=== PATIENT | female | born 1945 | race Caucasian/White ===

== ENCOUNTER 2023-10-31 09:09 | Inpatient (IN) | payer OTHER ==
[2023-10-31 22:20] VITALS: BMI 34.0
[2023-10-31] MEDS ORDERED: PSEUDOEPHEDRINE PO PRN (22:35)
[2023-10-31] MEDS ORDERED: BROMPHENIRAMINE PO PRN (22:35)
[2023-10-31] MEDS ORDERED: DEXTROMETHORPHAN PO PRN (22:35)
[2023-10-31] MEDS ORDERED: ACETAMINOPHEN 325 MG TABLET PO PRN (22:58)
[2023-10-31] MEDS ORDERED: ONDANSETRON 4 MG (ODT) TAB PO PRN (23:00)
[2023-10-31] MEDS ORDERED: D50W 25 GM/50 ML SYRINGE IV PRN (23:04)
[2023-10-31] MEDS ORDERED: GLUCAGON 1 MG/VIAL IM PRN (23:04)
[2023-10-31] MEDS ORDERED: D10W 125 ML IV PRN (23:10)
[2023-10-31] MEDS: TRAZODONE 150 MG TAB PO PRN (23:58)
[2023-11-01] MEDS ORDERED: DOCUSATE NA/SENNA CONC 1 TAB PO PRN (01:36)
[2023-11-01] MEDS ORDERED: MELATONIN 3 MG TABLET PO PRN (01:36)
[2023-11-01] MEDS ORDERED: NA CHLORIDE 0.9% 250 ML ONE (01:38)
[2023-11-01 03:56] LABS: Absolute Lymphocytes (CBC) 5.5 K/uL (0.7-4.9); Hematocrit 28.4 % (36.0-45.0); Lymphocytes % 38.1 % (15.3-44.8); MCV 88.7 fL (80-100); MPV 8.2 fL (7.6-11.3); Platelets 268 thou/uL (152-406); RBC Red Blood Cell Count 3.21 M/uL (3.86-4.86)
[2023-11-01 04:06] LABS: Potassium 3.2 mEq/L (3.5-5.1); Prealbumin 6.6 mg/dL (20-40)
[2023-11-01] MEDS: PANTOPRAZOLE 40MG TABLET PO SCH (05:28)
[2023-11-01] MEDS: THYROID 30 MG TAB PO SCH (05:28)
[2023-11-01] MEDS: INSULIN REGULAR (HUMAN) 100 UNIT/ML SQ SCH ×4 (07:30→21:00)
[2023-11-01] MEDS: CINNAMON 1000 MG PO SCH (08:00)
[2023-11-01] MEDS ORDERED: CEFTRIAXONE 2,000 MG in NA CHLORIDE 0.9% 100 ML IV SCH (08:00)
[2023-11-01] MEDS: FARXIGA 10 MG PO SCH (08:00)
[2023-11-01] MEDS: TRAJENTA 5 MG PO SCH (08:00)
[2023-11-01] MEDS: COMPLEX PO SCH (08:00)
[2023-11-01] MEDS: DOCUSATE NA 100 MG CAP PO SCH (08:00)
[2023-11-01] MEDS: NYSTATIN PWDR 100000 UNIT/GM TOP SCH ×2 (09:16→21:06)
[2023-11-01] MEDS: CLOPIDOGREL 75 MG TABLET PO SCH (09:17)
[2023-11-01] MEDS: MEMANTINE HCL 10 MG TABLET PO SCH ×2 (09:17→21:06)
[2023-11-01] MEDS: PARoxetine HCL 10 MG TAB PO SCH (09:17)
[2023-11-01] MEDS: GABAPENTIN 300 MG CAP PO SCH ×3 (09:18→21:01)
[2023-11-01] MEDS: APIXABAN 5 MG TABLET PO SCH (09:18)
[2023-11-01] MEDS: CYANOCOBALAMIN 1,000 MCG TAB PO SCH (09:18)
[2023-11-01] MEDS: CARBIDOPA/LEVODOPA 25/100 TAB PO SCH ×2 (09:19→21:00)
[2023-11-01] MEDS: HYDRALAZINE HCL 25 MG TABLET PO SCH ×2 (09:19→21:01)
[2023-11-01] MEDS: carvediloL 6.25 MG TAB PO SCH ×2 (09:19→21:01)
[2023-11-01] MEDS: FUROSEMIDE 40 MG TABLET PO SCH (09:20)
[2023-11-01] MEDS: AMLODIPINE 5 MG TAB PO SCH (09:20)
[2023-11-01] MEDS: VITAMIN D 5,000 UNIT CAP PO SCH (09:20)
[2023-11-01] MEDS: FERROUS SULFATE 325 MG TAB PO SCH ×2 (09:20→16:36)
[2023-11-01] MEDS: SODIUM CHLORIDE 0.9% 10ML INJ IV SCH ×2 (09:21→21:12)
[2023-11-01] MEDS: ASCORBIC ACID 500 MG TABLET PO SCH (09:21)
[2023-11-01] MEDS: CEFTRIAXONE 2,000 MG in NA CHLORIDE 0.9% 100 ML IV SCH (09:27)
--- NOTE | 2023-11-01 11:23 | RAD REPORT ---
EXAM DESCRIPTION: RAD - Chest Single View - 11/01/2023 6:35 am CLINICAL HISTORY: Picc line placement verification COMPARISON: Chest 1 View AP 10/27/2023 CT chest 07/13/2023 TECHNIQUE: Chest 1 View AP FINDINGS: Trachea midline. Heart size and pulmonary vessels within normal limits. Poor visualization of left lower lung field due to relative increased density. No significant pleural effusion or pneumothorax. No acute fracture. Cardiac pacemaker with pulse generator overlying left chest wall and lead tips overlying right atrium and right ventricle. Sternotomy and mediastinal surgical clips suggest CABG. Left arm PICC tip overlies midlevel medial soft tissues of left upper arm. IMPRESSION: 1. Dense left lower lung field appearance. This may be artifactual due to lack of deep inspiration, small pleural effusion, atelectasis, or cons olidation. Follow up chest radiograph 2 views (PA and lateral) in upright position with full inspiration in radi ology department may be helpful. 2. Cardiac pacemaker and CABG reidentified. 3. Left arm PICC tip overlies midlevel medial soft tissues of left upper arm. Electronically signed by: Lv Alfred MD 11/01/2023 07:16 AM SOLE LEVELER MACHINE Due to temporary technical issues with the PACS/Fluency reporting system, reports are being signed by the in house radiologist without review as a courtesy to ensure prompt reporting. The interpreting r adiologist is fully responsible for the content of the report.
[2023-11-01] MEDS: LIDOCAINE 4% PATCH TOP SCH (15:26)
[2023-11-01] MEDS ORDERED: POTASSIUM CL SA 10 MEQ TAB PO ONE (19:35)
[2023-11-01] MEDS: INSULIN GLARGINE 100 UNIT/ML SQ SCH (21:00)
[2023-11-01] MEDS ORDERED: ATORVASTATIN 80 MG TAB PO SCH (21:00)
[2023-11-01] MEDS: DONEPEZIL HCL 5 MG TAB PO SCH (21:01)
[2023-11-01] MEDS: ATORVASTATIN 40 MG TAB PO SCH (21:01)
--- NOTE | 2023-11-02 00:04 | HP ---
Date of Admission: 10/31/2023 [id number] Ad[facility] History and Physical Time Of Service: 12:30 p.m. Chief Complaint: "I became very weak and need some help." History Of Present Illness: Ms. Lai is a 78-year-old patient with Alzheimer disease and Parkinso n disease, who developed left-sided chest pain at outside hospital with left arm radiation and shortn ess of breath. The patient had fallen 2 days prior to her presenting to hospital. Her daughter was worried that she had a new myocardial infarction as she had a 4-vessel cardiac bypass previously. Billy katz was found to have elevated white blood cell of 24,000, troponins of 17 and diagnosed with ischemic heart disease. However, there was no ST-segment myocardial infarction identified. Her blood sugars were elevated to 835 and the patient admitted to having a high-carb dinner and taking a Dr. Leblanc dr ink. She has also stage 3 kidney disease and found to be dehydrated. Her furosemide was held. She received gentle IV hydration. Beta-blockers for congestive heart failure continued, and she was corrine silver with insulin sliding scale and diet-controlled diabetes mellitus which has been uncontrolled at h emoglobin A1c of 9.5. Also was on Sinemet for Parkinson disease, Namenda for Alzheimer disease, traz odone for insomnia. She is continued on Synthroid for hypothyroidism along with Eliquis, Plavix, and statin for stroke risk reduction along with myocardial infarction risk reduction. In her evaluation , found to have a fever with the leukocytosis and the urinalysis showed pyuria. She received Rocephi n and vancomycin, and cultures grew Streptococcus pyogenes group A. Antibiotics were adjusted to cli ndamycin. She is set to continue the clindamycin for 14 days beginning on 10/31/2023. The patient w as cleared medically to begin inpatient rehabilitation, as she has been significantly debilitated. P rior to her recent bout of infection, she was independent ambulating without an assistive device desp ite being advised to use a walker. She typically just sits in a recliner and only ambulates back and forth to the restroom. She was able to dress herself and do ordinary activities with setup assistan ce. However, at this point, she requires maximum assistance and 2 people for bed mobilization, moder ate assistance with 2-person assist for her mzh-je-uauor transfers and she is not yet able to ambulat e any meaningful distances. She is now functioning well below her baseline. As a result, she requir es aggressive physical, occupational, and speech therapy and daily physician evaluation and managemen t of her comorbid conditions. This may help her to return home and reduce or minimize the risk of re hospitalization. Past Medical History: Congestive heart failure, coronary artery disease, Alzheimer disease, diabetes mellitus type 2, dyslipidemia, hypertension, hypothyroidism, prior myocardial infarction with 4-vess el bypass surgery in addition to surgical history of appendectomy, cardiac stents x3, pacemaker place ment, tonsillectomy, and right foot surgery. Allergies: NO KNOWN DRUG ALLERGIES. Recent Imaging: Chest x-ray on 10/25/2023 showed no acute cardiothoracic findings. Medications: Tylenol 650 mg every 6 hours as needed, Norvasc 5 mg daily, Eliquis 5 mg twice daily, a scorbic acid 500 mg daily, Lipitor 40 mg at bedtime, Sinemet 25/100 two tablets twice daily, Coreg 6. 25 mg twice daily. She received the Rocephin also 2 g daily, vitamin D 5000 units daily, Plavix 75 m g daily, vitamin B12 1000 mcg daily, Colace 100 mg daily, Aricept 10 mg at bedtime, ferrous sulfate 3 25 mg twice daily, Lasix 40 mg daily, gabapentin 300 mg 3 times daily, Semglee insulin 70 units at be dtime, Apresoline 50 mg twice daily, melatonin 3 at bedtime, lidocaine patch apply topically daily, m emantine 10 mg twice daily, nystatin powder apply topically twice daily as needed, Zofran 4 mg every 6 hours as needed, Protonix 40 mg daily, Paxil 30 mg daily, Senokot-S 2 at bedtime, [place] Thyroid 12 0 daily, trazodone 150 mg at bedtime. Family History: Noncontributory. Social History: The patient lives at home with family. No alcohol, tobacco, or IV drug use. Review of Systems: As previously noted, she had chest pain. Currently, no chest pain. She denies any shortness of lei th aside from previously. No fevers, chills. No significant myalgias. There are mild arthralgias. No rash. No active psychiatric issues. No active genitourinary or gastrointestinal issues. No oth er positives on a 10-point systems review. Current Level Of Functioning: Eating, setup assistance. Oral hygiene, setup assistance. Toileting is dependent. Showering, dependent. Maximum assist for upper body dressing. Dependent for lower aundrea dy dressing. Dependent for donning of footwear. For rolling right to left and left to right, sit-to -stand, transfer from bed to chair to toilet, all dependent, but not yet ambulated. Rehabilitation And Medical Assessment And Plan: Ms. Lai is a 78-year-old patient admitted to the rehabilitation unit with impairment category 14 cardiac, impairment group code of 09, cardiac and et iologic diagnosis is diastolic congestive heart failure. Comorbidities include coronary artery disea se, decreased physical functioning, diabetes mellitus, hypertension, hyponatremia, hypothyroidism, le ukocytosis, Parkinson disease, fibrillation, stage 3 kidney failure. Plan: 1.She will have physical, occupational, and speech therapy 3-1/2 hours, 5 of 7 days. 2.She has multiple comorbid conditions that have been listed and she will continue Norvasc 5 mg jenelle y along with Coreg 6.25 mg twice daily and Lasix 40 mg daily for hypertension and fluid management. Also, currently she is on Eliquis 5 mg just actually 1 daily, Plavix 75 mg daily for her stroke risk and DVT risk reduction. She is receiving Rocephin 2 g IV daily that we will continue. Also, Aricept 10 mg at bedtime along with Namenda 10 mg twice daily for Alzheimer disease, trazodone for insomnia, [place] Thyroid for hypothyroidism, Paxil for depression, Protonix for GE reflux, gabapentin for neur opathic pain, carbidopa-levodopa 25/100 two twice daily for Parkinson disease. Impact Of Comorbidities: Currently, Ms. Lai as noted has multiple comorbid conditions including the need for IV antibiotics to continue. Her therapy schedule will be worked on her antibiotics. Sh gianna will be evaluated for potential GI related bacterial overgrowth, given IV antibiotics where she may develop C diff and she will be evaluated for that. In addition, repeat imaging including chest x-ra y may be done and KUB as appropriate. Urinalysis done on the floor as well. Furthermore, she has be en significantly debilitated prior to coming to the hospital and will require precautions for her saul lity just to transfer, as she has a very high fall risk. Gait belt and rolling walker at all times. Rehab Specific Plan: Ms. Lai will have 3-1/2 hours, 5 of 7 days of physical, occupational, and s peech therapy to improve her ability to transfer from bed to chair to toilet, to ambulate now about a t least 50 feet with minimum assistance and mobilize the wheelchair 250 feet with modified independen ce, up and down 5 steps with min assist, and perform cognitive functioning with supervision and also to be able to manage all her medications and make safe decisions in terms of reducing risk of falling when she goes home. Ms. Lai has a good understanding of the process of admission to inpatient rehabilitation facility and will understand that she may benefit well from physical, occupational, and speech therapy. If n eed be, additional service from the Infectious Disease, Orthopedic Service, Hospitalist Service, Sheeba l Service may be consulted. Given her complex medical condition and risk of further complications, r ehabilitation cannot be safely or effectively perform at the lower level of facility such as [facility]. Barriers To Discharge: Currently, the IV antibiotics need to be going at least 14 days and will pote ntially need to continue beyond the time that she is admitted to the inpatient rehabilitation; and th erefore, home health with ongoing [facility] may be required. Again, very high fall risk, as sh e is significantly debilitated and will be placed on fall precautions throughout and if she is impuls miguel ángel, may use a bed alarm and chair alarm. Length Of Stay: About 12 days. Disposition: Home with family. Prognosis: Fair. Rehab Specific Goals: 1.Again become independent with upper body and lower body dressing and transferring from bed to jimi r to toilet, be able to shower as close to independence as possible, donning and doffing footwear als o independent. 2.Ambulate 250 feet with supervision. 3.Propel a wheelchair 250 feet with independence. 4.Go up and down 5 steps with bilateral handrails with min assist. 5.Perform cognitive functioning independently. 6.The above goals were reviewed with Ms. Lai and she is in agreement. By signing this document, I acknowledge I personally performed a full physical examination on Ms. Tameka benjamin no later than 24 hours after her admission to the inpatient rehabilitation facility and determin ed that she is able to tolerate the above course of treatment at an intensive level for a reasonable period of time. A detailed individualized plan of care for her will be completed by hospital day 4 b ased on the preadmission screen, history and physical, and therapy evaluations. NORMA Voice ID: [id number]
[2023-11-02] MEDS: PANTOPRAZOLE 40MG TABLET PO SCH (05:42)
[2023-11-02] MEDS: THYROID 30 MG TAB PO SCH (05:42)
[2023-11-02] MEDS: INSULIN REGULAR (HUMAN) 100 UNIT/ML SQ SCH ×4 (07:30→20:14)
[2023-11-02] MEDS: CEFTRIAXONE 2,000 MG in NA CHLORIDE 0.9% 100 ML IV SCH (07:46)
[2023-11-02] MEDS: SODIUM CHLORIDE 0.9% 10ML INJ IV SCH ×2 (07:48→20:29)
[2023-11-02] MEDS: TRAJENTA 5 MG PO SCH (08:00)
[2023-11-02] MEDS: GABAPENTIN 300 MG CAP PO SCH ×3 (09:55→20:06)
[2023-11-02] MEDS: VITAMIN D 5,000 UNIT CAP PO SCH (09:55)
[2023-11-02] MEDS: POTASSIUM CL SA 10 MEQ TAB PO SCH ×2 (09:55→16:42)
[2023-11-02] MEDS: DOCUSATE NA 100 MG CAP PO SCH (09:55)
[2023-11-02] MEDS: FARXIGA 10 MG PO SCH (09:55)
[2023-11-02] MEDS: CYANOCOBALAMIN 1,000 MCG TAB PO SCH (09:55)
[2023-11-02] MEDS: CARBIDOPA/LEVODOPA 25/100 TAB PO SCH ×2 (09:56→20:06)
[2023-11-02] MEDS: PARoxetine HCL 10 MG TAB PO SCH (09:56)
[2023-11-02] MEDS: APIXABAN 5 MG TABLET PO SCH (09:57)
[2023-11-02] MEDS: FERROUS SULFATE 325 MG TAB PO SCH ×2 (09:57→16:42)
[2023-11-02] MEDS: ASCORBIC ACID 500 MG TABLET PO SCH (09:57)
[2023-11-02] MEDS: MEMANTINE HCL 10 MG TABLET PO SCH ×2 (09:57→20:06)
[2023-11-02] MEDS: CLOPIDOGREL 75 MG TABLET PO SCH (09:57)
[2023-11-02] MEDS: COMPLEX PO SCH (09:58)
[2023-11-02] MEDS: FUROSEMIDE 40 MG TABLET PO SCH (09:58)
[2023-11-02] MEDS: CINNAMON 1000 MG PO SCH (09:58)
[2023-11-02] MEDS: LIDOCAINE 4% PATCH TOP SCH (09:58)
[2023-11-02] MEDS: carvediloL 6.25 MG TAB PO SCH ×2 (09:58→20:05)
[2023-11-02] MEDS: AMLODIPINE 5 MG TAB PO SCH (09:59)
[2023-11-02] MEDS: HYDRALAZINE HCL 25 MG TABLET PO SCH ×2 (09:59→20:06)
[2023-11-02] MEDS: NYSTATIN PWDR 100000 UNIT/GM TOP SCH ×2 (10:12→20:08)
--- NOTE | 2023-11-02 13:58 | P.RH.PN ---
Estimated Length of Stay: 12 Expected Discharge Date: 11/10/23 Discharge Disposition Plan: Home Family Support: Yes Correction Goal: Mobility, Transfers, Self Care Vital Signs: Last Vital Signs Temp 97.6 F 11/02/23 08:00 Pulse 64 11/02/23 09:59 Resp 12 11/02/23 08:00 BP 167/67 H 11/02/23 09:59 Pulse Ox 97 11/02/23 08:00 Laboratory: Laboratory Last Values WBC 14.40 thou/uL (4.3-10.9) H 11/01/23 03:24 RBC 3.21 M/uL (3.86-4.86) L 11/01/23 03:24 Hgb 9.8 g/dL (12.0-15.0) L 11/01/23 03:24 Hct 28.4 % (36.0-45.0) L 11/01/23 03:24 MCV 88.7 fL (80-100) 11/01/23 03:24 MCH 30.6 pg (27.0-35.0) 11/01/23 03:24 MCHC 34.5 g/dL (32.0-36.0) 11/01/23 03:24 RDW 13.5 % (12.1-15.2) 11/01/23 03:24 Plt Count 268 thou/uL (152-406) 11/01/23 03:24 MPV 8.2 fL (7.6-11.3) 11/01/23 03:24 Neutrophils % 54.6 % (41.7-73.7) 11/01/23 03:24 Lymphocytes % 38.1 % (15.3-44.8) 11/01/23 03:24 Monocytes % 5.4 % (3.3-12.3) 11/01/23 03:24 Eosinophils % 1.3 % (0-4.4) 11/01/23 03:24 Basophils % 0.6 % (0-1.3) 11/01/23 03:24 Absolute Neutrophils 7.9 K/uL (1.8-8.0) 11/01/23 03:24 Absolute Lymphocytes 5.5 K/uL (0.7-4.9) H 11/01/23 03:24 Absolute Monocytes 0.8 K/uL (0.1-1.3) 11/01/23 03:24 Absolute Eosinophils 0.2 K/uL (0-0.5) 11/01/23 03:24 Absolute Basophils 0.1 K/uL (0-0.5) 11/01/23 03:24 Sodium 137 mEq/L (136-145) 11/01/23 03:24 Potassium 3.2 mEq/L (3.5-5.1) L 11/01/23 03:24 Chloride 105 mEq/L (98-107) 11/01/23 03:24 Carbon Dioxide 26 mEq/L (21-32) 11/01/23 03:24 Anion Gap 9.2 mEq/L (5.0-15.0) 11/01/23 03:24 BUN 11 mg/dL (7-18) 11/01/23 03:24 Creatinine 0.99 mg/dL (0.55-1.02) 11/01/23 03:24 Est GFR (CKD-EPI) 59 ml/min (=/>90) L 11/01/23 03:24 Glucose 170 mg/dL (74-106) H 11/01/23 03:24 POC Glucose 129 mg/dL (65-120) H 11/02/23 11:02 Calcium 8.0 mg/dL (8.5-10.1) L 11/01/23 03:24 Magnesium 2.0 mg/dL (1.6-2.4) 11/01/23 03:24 NT-Pro-B Natriuret Pep 3848 pg/mL (<450) H 11/01/23 03:24 Albumin 2.0 g/dL (3.4-5.0) L 11/01/23 03:24 Prealbumin 6.6 mg/dL (20-40) L 11/01/23 03:24 SARS-CoV-2 Rap RNA(RT-PCR) Negative (NEGATIVE) 10/31/23 22:08 Weight: 211 lb 3.2 oz Wound Present: Yes Closed Surgical Incision Present: No Negative Pressure Wound Therapy Present: No Physician Update: Severe malnutrition, prealbumin 6.6, Left shoulder pain is 7/10. On ceftriaxone 2000 mg daily for 2 weeks. BIMS 12, SLUMS 15. Poor atten tion, orientation and memory. Min assist for bed mobility, 50' RW, WC 85'. Transfer to toilet with supervision. Summary: Patient's care plan and terminal gauger supervisor goals have been reviewed and revised as necessary. Please see the Rehabilitation Signature page for all necessary signatures.
[2023-11-02] MEDS: ALOGLIPTIN BENZOATE 12.5 MG TABLET PO SCH (19:03)
[2023-11-02] MEDS: DONEPEZIL HCL 5 MG TAB PO SCH (20:06)
[2023-11-02] MEDS: ATORVASTATIN 40 MG TAB PO SCH (20:07)
[2023-11-02] MEDS: GLUCERNA SHAKE 237 ML CAN PO SCH (20:29)
[2023-11-02] MEDS: INSULIN GLARGINE 100 UNIT/ML SQ SCH (20:29)
[2023-11-03] MEDS: THYROID 30 MG TAB PO SCH (05:17)
[2023-11-03] MEDS: PANTOPRAZOLE 40MG TABLET PO SCH (05:17)
[2023-11-03] MEDS: INSULIN REGULAR (HUMAN) 100 UNIT/ML SQ SCH ×4 (07:30→20:03)
[2023-11-03] MEDS: TRAJENTA 5 MG PO SCH (08:00)
[2023-11-03] MEDS: SODIUM CHLORIDE 0.9% 10ML INJ IV SCH ×2 (08:00→20:01)
[2023-11-03] MEDS: LIDOCAINE 4% PATCH TOP SCH (09:42)
[2023-11-03] MEDS: VITAMIN D 5,000 UNIT CAP PO SCH (09:43)
[2023-11-03] MEDS: ASCORBIC ACID 500 MG TABLET PO SCH (09:43)
[2023-11-03] MEDS: GABAPENTIN 300 MG CAP PO SCH ×3 (09:43→20:04)
[2023-11-03] MEDS: APIXABAN 5 MG TABLET PO SCH (09:44)
[2023-11-03] MEDS: CARBIDOPA/LEVODOPA 25/100 TAB PO SCH ×2 (09:44→20:02)
[2023-11-03] MEDS: DOCUSATE NA 100 MG CAP PO SCH (09:44)
[2023-11-03] MEDS: POTASSIUM CL SA 10 MEQ TAB PO SCH ×2 (09:44→17:13)
[2023-11-03] MEDS: CLOPIDOGREL 75 MG TABLET PO SCH (09:44)
[2023-11-03] MEDS: AMLODIPINE 5 MG TAB PO SCH (09:45)
[2023-11-03] MEDS: CYANOCOBALAMIN 1,000 MCG TAB PO SCH (09:45)
[2023-11-03] MEDS: FERROUS SULFATE 325 MG TAB PO SCH ×2 (09:45→17:13)
[2023-11-03] MEDS: PARoxetine HCL 10 MG TAB PO SCH (09:46)
[2023-11-03] MEDS: MEMANTINE HCL 10 MG TABLET PO SCH ×2 (09:46→20:02)
[2023-11-03] MEDS: FUROSEMIDE 40 MG TABLET PO SCH (09:47)
[2023-11-03] MEDS: ALOGLIPTIN BENZOATE 12.5 MG TABLET PO SCH (09:48)
[2023-11-03] MEDS: CEFTRIAXONE 2,000 MG in NA CHLORIDE 0.9% 100 ML IV SCH (09:51)
[2023-11-03] MEDS: carvediloL 6.25 MG TAB PO SCH ×2 (10:04→20:02)
[2023-11-03] MEDS: HYDRALAZINE HCL 25 MG TABLET PO SCH ×2 (10:04→20:01)
[2023-11-03] MEDS: GLUCERNA SHAKE 237 ML CAN PO SCH ×3 (10:05→20:04)
[2023-11-03] MEDS: FARXIGA 10 MG PO SCH (10:31)
[2023-11-03] MEDS: CINNAMON 1000 MG PO SCH (10:32)
[2023-11-03] MEDS: COMPLEX PO SCH (10:32)
[2023-11-03] MEDS: NYSTATIN PWDR 100000 UNIT/GM TOP SCH ×2 (11:41→20:03)
[2023-11-03] MEDS ORDERED: NA CHLORIDE 0.9% 250 ML ONE (19:46)
[2023-11-03] MEDS: ATORVASTATIN 40 MG TAB PO SCH (19:59)
[2023-11-03] MEDS: TRAZODONE 150 MG TAB PO PRN (20:00)
[2023-11-03] MEDS: INSULIN GLARGINE 100 UNIT/ML SQ SCH (20:03)
[2023-11-03] MEDS: DONEPEZIL HCL 5 MG TAB PO SCH (20:03)
[2023-11-04] MEDS: THYROID 30 MG TAB PO SCH (05:05)
[2023-11-04] MEDS: PANTOPRAZOLE 40MG TABLET PO SCH (05:06)
[2023-11-04 06:35] LABS: Potassium 3.7 mEq/L (3.5-5.1)
[2023-11-04] MEDS: INSULIN REGULAR (HUMAN) 100 UNIT/ML SQ SCH ×4 (07:30→20:07)
[2023-11-04] MEDS: TRAJENTA 5 MG PO SCH (08:00)
[2023-11-04] MEDS: LIDOCAINE 4% PATCH TOP SCH (08:39)
[2023-11-04] MEDS: CEFTRIAXONE 2,000 MG in NA CHLORIDE 0.9% 100 ML IV SCH (08:39)
[2023-11-04] MEDS: ASCORBIC ACID 500 MG TABLET PO SCH (08:40)
[2023-11-04] MEDS: GABAPENTIN 300 MG CAP PO SCH ×3 (08:40→20:05)
[2023-11-04] MEDS: APIXABAN 5 MG TABLET PO SCH (08:41)
[2023-11-04] MEDS: HYDRALAZINE HCL 25 MG TABLET PO SCH ×2 (08:41→20:04)
[2023-11-04] MEDS: CARBIDOPA/LEVODOPA 25/100 TAB PO SCH ×2 (08:41→20:05)
[2023-11-04] MEDS: CLOPIDOGREL 75 MG TABLET PO SCH (08:41)
[2023-11-04] MEDS: PARoxetine HCL 10 MG TAB PO SCH (08:42)
[2023-11-04] MEDS: ALOGLIPTIN BENZOATE 12.5 MG TABLET PO SCH (08:42)
[2023-11-04] MEDS: POTASSIUM CL SA 10 MEQ TAB PO SCH ×2 (08:42→16:34)
[2023-11-04] MEDS: CYANOCOBALAMIN 1,000 MCG TAB PO SCH (08:43)
[2023-11-04] MEDS: NYSTATIN PWDR 100000 UNIT/GM TOP SCH ×2 (08:43→20:07)
[2023-11-04] MEDS: MEMANTINE HCL 10 MG TABLET PO SCH ×2 (08:43→20:04)
[2023-11-04] MEDS: FUROSEMIDE 40 MG TABLET PO SCH (08:43)
[2023-11-04] MEDS: carvediloL 6.25 MG TAB PO SCH ×2 (08:43→20:05)
[2023-11-04] MEDS: AMLODIPINE 5 MG TAB PO SCH (08:44)
[2023-11-04] MEDS: SODIUM CHLORIDE 0.9% 10ML INJ IV SCH ×2 (10:06→20:07)
[2023-11-04] MEDS: GLUCERNA SHAKE 237 ML CAN PO SCH ×3 (10:07→20:07)
[2023-11-04] MEDS: CINNAMON 1000 MG PO SCH (10:08)
[2023-11-04] MEDS: COMPLEX PO SCH (10:08)
[2023-11-04] MEDS: FARXIGA 10 MG PO SCH (10:09)
[2023-11-04] MEDS: DOCUSATE NA 100 MG CAP PO SCH (10:10)
[2023-11-04] MEDS: FERROUS SULFATE 325 MG TAB PO SCH ×2 (10:10→16:34)
[2023-11-04] MEDS: VITAMIN D 5,000 UNIT CAP PO SCH (11:32)
[2023-11-04 11:35] LABS: Absolute Lymphocytes (CBC) 5.6 K/uL (0.7-4.9); MCV 90.5 fL (80-100); MPV 7.6 fL (7.6-11.3); Platelets 379 thou/uL (152-406); RBC Red Blood Cell Count 3.31 M/uL (3.86-4.86)
[2023-11-04] MEDS: ATORVASTATIN 40 MG TAB PO SCH (20:05)
[2023-11-04] MEDS: DONEPEZIL HCL 5 MG TAB PO SCH (20:05)
[2023-11-04] MEDS: TRAZODONE 150 MG TAB PO PRN (20:06)
[2023-11-04] MEDS: INSULIN GLARGINE 100 UNIT/ML SQ SCH (20:06)
[2023-11-05] MEDS: PANTOPRAZOLE 40MG TABLET PO SCH (05:22)
[2023-11-05] MEDS: THYROID 30 MG TAB PO SCH (05:23)
[2023-11-05] MEDS: INSULIN REGULAR (HUMAN) 100 UNIT/ML SQ SCH ×4 (07:30→19:59)
[2023-11-05] MEDS: TRAJENTA 5 MG PO SCH (08:00)
[2023-11-05] MEDS: GLUCERNA SHAKE 237 ML CAN PO SCH ×3 (09:00→19:40)
[2023-11-05] MEDS: LIDOCAINE 4% PATCH TOP SCH ×2 (09:45→11:01)
[2023-11-05] MEDS: CYANOCOBALAMIN 1,000 MCG TAB PO SCH (09:45)
[2023-11-05] MEDS: POTASSIUM CL SA 10 MEQ TAB PO SCH ×2 (09:45→17:11)
[2023-11-05] MEDS: CARBIDOPA/LEVODOPA 25/100 TAB PO SCH ×2 (09:45→19:39)
[2023-11-05] MEDS: FERROUS SULFATE 325 MG TAB PO SCH ×2 (09:46→17:11)
[2023-11-05] MEDS: HYDRALAZINE HCL 25 MG TABLET PO SCH ×2 (09:46→19:39)
[2023-11-05] MEDS: carvediloL 6.25 MG TAB PO SCH ×2 (09:46→19:39)
[2023-11-05] MEDS: FUROSEMIDE 40 MG TABLET PO SCH (09:47)
[2023-11-05] MEDS: PARoxetine HCL 10 MG TAB PO SCH (09:47)
[2023-11-05] MEDS: MEMANTINE HCL 10 MG TABLET PO SCH ×2 (09:47→19:39)
[2023-11-05] MEDS: DOCUSATE NA 100 MG CAP PO SCH (09:47)
[2023-11-05] MEDS: AMLODIPINE 5 MG TAB PO SCH (09:47)
[2023-11-05] MEDS: ASCORBIC ACID 500 MG TABLET PO SCH (09:47)
[2023-11-05] MEDS: CLOPIDOGREL 75 MG TABLET PO SCH (09:47)
[2023-11-05] MEDS: APIXABAN 5 MG TABLET PO SCH (09:47)
[2023-11-05] MEDS: VITAMIN D 5,000 UNIT CAP PO SCH (09:47)
[2023-11-05] MEDS: CEFTRIAXONE 2,000 MG in NA CHLORIDE 0.9% 100 ML IV SCH (09:48)
[2023-11-05] MEDS: GABAPENTIN 300 MG CAP PO SCH ×3 (09:48→19:39)
[2023-11-05] MEDS: SODIUM CHLORIDE 0.9% 10ML INJ IV SCH ×2 (09:48→19:39)
[2023-11-05] MEDS: FARXIGA 10 MG PO SCH (09:49)
[2023-11-05] MEDS: ALOGLIPTIN BENZOATE 12.5 MG TABLET PO SCH (09:49)
[2023-11-05] MEDS: NYSTATIN PWDR 100000 UNIT/GM TOP SCH ×2 (09:49→19:40)
[2023-11-05] MEDS: CINNAMON 1000 MG PO SCH (09:51)
[2023-11-05] MEDS: COMPLEX PO SCH (09:51)
[2023-11-05] MEDS: INSULIN GLARGINE 100 UNIT/ML SQ SCH (19:38)
[2023-11-05] MEDS: ATORVASTATIN 40 MG TAB PO SCH (19:38)
[2023-11-05] MEDS: DONEPEZIL HCL 5 MG TAB PO SCH (19:41)
--- NOTE | 2023-11-05 23:19 | PN ---
Date of Progress Note: 11/05/2023 Time Of Service: 01:35 p.m. Subjective: Ms. Lai is resting comfortably in between therapy sessions. She has no new complain ts and is doing well with therapy so far. Review of Systems: No fevers, chills, myalgias, arthralgias. No rash, headache, weight change. Laboratory Studies: White blood cell count on the 7th improved to 12.2 from 14.4 on the 1st. Hemogl obin improved from 9.8 to 10.1. Blood sugars ranged from 85 to 188. X-ray/imaging: No new x-rays or imaging. Medications: Norvasc 5 mg daily, Tylenol 650 mg every 6 hours as needed, Eliquis 5 mg daily, vitamin C 500 mg daily, Lipitor 40 mg at bedtime, carbidopa-levodopa 25-100 mg 2 twice daily, Coreg 6.25 mg twice daily, she is on Rocephin 12 bags to complete from the 4th and 200 mg daily, vitamin D 5000 uni ts daily, Plavix 75 mg daily, B12 1000 mcg daily, Colace 100 mg daily, donepezil 10 mg at bedtime, Gl ucerna 237 mL 3 times daily, ferrous sulfate 325 mg twice daily, Lasix 40 mg daily, gabapentin 300 mg 3 times daily, hydralazine 50 mg twice daily, Namenda 10 mg twice daily, melatonin 3 mg at bedtime, apply lidocaine patch topically as needed daily, Semglee insulin 60 units at bedtime, Paxil 30 mg alma ly, potassium 10 mEq twice daily, Senokot-S 2 at bedtime, [place] Thyroid 120 mg daily, trazodone 100 mg at night. Progress Made With Physical And Occupational And Speech Therapy: Today she did supine to sit transfe rs with standby assistance. She was able to eat independently, stand pivot transfers done independen tly. She ambulated 275 feet, 250 feet, and 150 feet with standby assistance using a rolling walker. She ascended and descended 15 steps and then 10 more steps with bilateral handrails. With occupatio nal therapy, supervision for toilet transfers, shower transfers, [id number]-nm-[id number] transfers completed 5 t imes with proper hand placement. With speech therapy, she worked on short-term memory skills, organi zational thinking, and orientation skills. She was able to do tasks related to divergent and converg ent naming as well as working memory with 100% accuracy. She was independent as she did that. Ms. Lai is making excellent progress with physical, occupational, and speech therapy. Improving in terms of her ability to ambulate. She does have some mild swelling in the feet, but her legs do n ot show any significant swelling. She will have JIMMY hose in place for that. Assessment: Ms. Lai is a 78-year-old patient in the rehabilitation unit with congestive heart fa ilure, Parkinson disease, Alzheimer disease, mild edema in the lower extremities, diastolic congestiv e heart failure, hypertension, hyponatremia, hypothyroidism, atrial fibrillation, stage 3 kidney dise ase. Plan: 1.She will have physical, occupational, and speech therapy for 3.5 hours, 5 of 7 days. 2.For the edema in the foot will have JIMMY hose in place. Continue Eliquis for DVT and stroke risk r eduction and her atrial fibrillation. Continue with Rocephin as scheduled. Continue all comorbid co ndition medications as noted including for Alzheimer's and Parkinson disease. Comorbidities That Continue To Impact Rehabilitation: She does have cognitive impairment as noted wi th Alzheimer disease. Despite that, she is doing very well. She does have some mild swelling in the feet and will have the JIMMY hose to mitigate that and she is on Rocephin high dose and will complete 5 more courses. MESHA/FARIHA Voice ID: [id number] Report ID: [id number]
[2023-11-06] MEDS: THYROID 30 MG TAB PO SCH (05:19)
[2023-11-06] MEDS: PANTOPRAZOLE 40MG TABLET PO SCH (05:40)
[2023-11-06] MEDS: INSULIN REGULAR (HUMAN) 100 UNIT/ML SQ SCH ×4 (07:30→20:16)
[2023-11-06] MEDS: GLUCERNA SHAKE 237 ML CAN PO SCH ×3 (08:55→20:17)
[2023-11-06] MEDS: FUROSEMIDE 40 MG TABLET PO SCH (10:00)
[2023-11-06] MEDS: AMLODIPINE 5 MG TAB PO SCH (10:00)
[2023-11-06] MEDS: carvediloL 6.25 MG TAB PO SCH ×2 (10:00→20:16)
[2023-11-06] MEDS: CYANOCOBALAMIN 1,000 MCG TAB PO SCH (10:50)
[2023-11-06] MEDS: APIXABAN 5 MG TABLET PO SCH (10:50)
[2023-11-06] MEDS: POTASSIUM CL SA 10 MEQ TAB PO SCH ×2 (10:50→17:27)
[2023-11-06] MEDS: MEMANTINE HCL 10 MG TABLET PO SCH ×2 (10:50→20:15)
[2023-11-06] MEDS: FERROUS SULFATE 325 MG TAB PO SCH ×2 (10:51→17:26)
[2023-11-06] MEDS: CARBIDOPA/LEVODOPA 25/100 TAB PO SCH ×2 (10:51→20:16)
[2023-11-06] MEDS: ALOGLIPTIN BENZOATE 12.5 MG TABLET PO SCH (10:52)
[2023-11-06] MEDS: PARoxetine HCL 10 MG TAB PO SCH (10:52)
[2023-11-06] MEDS: DOCUSATE NA 100 MG CAP PO SCH (10:52)
[2023-11-06] MEDS: GABAPENTIN 300 MG CAP PO SCH ×3 (10:53→20:16)
[2023-11-06] MEDS: ASCORBIC ACID 500 MG TABLET PO SCH (10:53)
[2023-11-06] MEDS: VITAMIN D 5,000 UNIT CAP PO SCH (10:54)
[2023-11-06] MEDS: HYDRALAZINE HCL 25 MG TABLET PO SCH ×2 (10:55→20:16)
[2023-11-06] MEDS: NYSTATIN PWDR 100000 UNIT/GM TOP SCH ×2 (10:57→20:17)
[2023-11-06] MEDS: CINNAMON 1000 MG PO SCH (10:58)
[2023-11-06] MEDS: SODIUM CHLORIDE 0.9% 10ML INJ IV SCH ×2 (10:58→20:17)
[2023-11-06] MEDS: FARXIGA 10 MG PO SCH (10:58)
[2023-11-06] MEDS: COMPLEX PO SCH (10:58)
[2023-11-06] MEDS: CEFTRIAXONE 2,000 MG in NA CHLORIDE 0.9% 100 ML IV SCH (10:58)
[2023-11-06] MEDS: LIDOCAINE 4% PATCH TOP SCH (10:59)
[2023-11-06] MEDS: CLOPIDOGREL 75 MG TABLET PO SCH (11:00)
[2023-11-06] MEDS: DONEPEZIL HCL 5 MG TAB PO SCH (20:15)
[2023-11-06] MEDS: ATORVASTATIN 40 MG TAB PO SCH (20:15)
[2023-11-06] MEDS: INSULIN GLARGINE 100 UNIT/ML SQ SCH (20:16)
[2023-11-06] MEDS: TRAZODONE 150 MG TAB PO PRN (20:18)
[2023-11-07] MEDS: THYROID 30 MG TAB PO SCH (05:07)
[2023-11-07] MEDS: PANTOPRAZOLE 40MG TABLET PO SCH (05:35)
[2023-11-07] MEDS: LIDOCAINE 4% PATCH TOP SCH (07:19)
[2023-11-07] MEDS: HYDRALAZINE HCL 25 MG TABLET PO SCH ×2 (07:19→20:55)
[2023-11-07] MEDS: FERROUS SULFATE 325 MG TAB PO SCH ×2 (07:19→16:28)
[2023-11-07] MEDS: ALOGLIPTIN BENZOATE 12.5 MG TABLET PO SCH (07:20)
[2023-11-07] MEDS: carvediloL 6.25 MG TAB PO SCH ×2 (07:20→20:56)
[2023-11-07] MEDS: AMLODIPINE 5 MG TAB PO SCH (07:20)
[2023-11-07] MEDS: POTASSIUM CL SA 10 MEQ TAB PO SCH ×2 (07:20→16:28)
[2023-11-07] MEDS: VITAMIN D 5,000 UNIT CAP PO SCH (07:20)
[2023-11-07] MEDS: CYANOCOBALAMIN 1,000 MCG TAB PO SCH (07:20)
[2023-11-07] MEDS: ASCORBIC ACID 500 MG TABLET PO SCH (07:21)
[2023-11-07] MEDS: DOCUSATE NA 100 MG CAP PO SCH (07:21)
[2023-11-07] MEDS: MEMANTINE HCL 10 MG TABLET PO SCH ×2 (07:21→20:55)
[2023-11-07] MEDS: FUROSEMIDE 40 MG TABLET PO SCH (07:21)
[2023-11-07] MEDS: CARBIDOPA/LEVODOPA 25/100 TAB PO SCH ×2 (07:21→20:55)
[2023-11-07] MEDS: PARoxetine HCL 10 MG TAB PO SCH (07:22)
[2023-11-07] MEDS: CEFTRIAXONE 2,000 MG in NA CHLORIDE 0.9% 100 ML IV SCH (07:22)
[2023-11-07] MEDS: APIXABAN 5 MG TABLET PO SCH (07:22)
[2023-11-07] MEDS: CLOPIDOGREL 75 MG TABLET PO SCH (07:22)
[2023-11-07] MEDS: COMPLEX PO SCH (07:23)
[2023-11-07] MEDS: CINNAMON 1000 MG PO SCH (07:23)
[2023-11-07] MEDS: INSULIN REGULAR (HUMAN) 100 UNIT/ML SQ SCH ×4 (07:23→20:56)
[2023-11-07] MEDS: FARXIGA 10 MG PO SCH (07:23)
[2023-11-07] MEDS: NYSTATIN PWDR 100000 UNIT/GM TOP SCH ×2 (07:23→20:54)
[2023-11-07] MEDS: SODIUM CHLORIDE 0.9% 10ML INJ IV SCH ×2 (07:24→20:56)
[2023-11-07] MEDS: GLUCERNA SHAKE 237 ML CAN PO SCH ×3 (09:00→20:56)
[2023-11-07] MEDS: GABAPENTIN 300 MG CAP PO SCH ×3 (09:00→20:55)
--- NOTE | 2023-11-07 15:59 | RAD REPORT ---
EXAM DESCRIPTION: RAD - Chest Single View - 11/07/2023 3:12 pm CLINICAL HISTORY: Device placement PICC line placement IMPRESSION: PICC has its tip at the mid level of the left humerus
--- NOTE | 2023-11-07 20:40 | PN ---
Date of Progress Note: 11/07/2023 Time Of Service: 01:35 p.m. Subjective: Ms. Lai is resting comfortably in the room. She is very happy, very glad about how well she is doing. She has no new complaints. Review of Systems: No fevers, chills, nausea, vomiting, myalgias, arthralgias, rash. No psychiatric complaints. No gas trointestinal or genitourinary complaints. Physical Examination: Vital Signs: Blood pressure 129/58, pulse of 64, respiratory rate 17, temperature 97.8, oxygen satur ation 92%. General: Ms. Lai is resting comfortably. HEENT: She is normocephalic, atraumatic. Sclerae anicteric. Oropharynx pink and moist. Neck: Supple. Chest: Clear. Heart: Regular. Extremities: Show no significant clubbing, cyanosis, or edema. Laboratory Studies: White blood cell count 12.2, hemoglobin 10.1, platelets 379. Her blood glucose today ranged from 131 to 176. X-ray Imaging: A chest x-ray was done earlier today. The study identified the PICC line tip is at t he mid level of the left humerus. Medications: Medications have been reviewed and are unchanged. She is on Eliquis 5 mg twice daily f or DVT risk reduction. She has carbidopa/levodopa 25/100 two twice daily, Coreg 6.25 mg twice daily, vitamin C 500 mg daily, Norvasc 5 mg daily, acetaminophen 650 mg every 4 hours as needed for moderat e pain. She is completing Rocephin, that is why she has a PICC line and she has a total of 12 bags o rdered from 11/01 and will go home and complete that. Vitamin D 5000 units daily, Plavix 75 mg daily , vitamin B12 1000 mcg daily, donepezil 10 mg at bedtime, Colace 100 mg daily, ferrous sulfate 325 mg daily, Lasix 40 mg daily, gabapentin 300 mg 3 times daily, Apresoline 50 mg twice daily. Progress Made With Physical And Occupational Therapy: Today with physical therapy, she ambulated 350 feet and 250 feet with a rolling walker and she did 350 feet twice and did that independently. Supi ne to sit transfers done independently. Wzm-gw-ysmny transfers done independently. With her occupat ional therapy, she completed 2 times stand transfers with no upper body support with rest breaks due to fatigue. With speech therapy, increased her BIMS score from 12 to 15, SLUMS score did decrease from 15-14. Ms. Lai is making good progress with physical and occupational therapy, seems to have been unchan ged in terms of her speech therapy with cognitive issues remaining the same. Assessment: Ms. Lai is a 78-year-old patient in the rehabilitation unit for CHF, Parkinson disea se, and Alzheimer's dementia. She has diastolic congestive heart failure, hypertension, hyponatremia , hypothyroidism, along with atrial fibrillation, stage 3 kidney failure. Plan: 1.Continue physical, occupational, and speech therapy for 3.5 hours, 5 of 7 days. 2.Her comorbid conditions which are including the need for continuing the Rocephin that has been add ressed. She is on Alzheimer disease medications, medications for Parkinson disease, in addition for DVT prophylaxis. Comorbidities That Continue To Impact Rehabilitation: Currently, she will have the Rocephin complete d as outpatient. She does have some mild swelling in the legs, addressed with elevation of diuretics and JIMMY hose. LB/MODL Voice ID: [id number] Report ID: [id number]
[2023-11-07] MEDS: INSULIN GLARGINE 100 UNIT/ML SQ SCH (20:54)
[2023-11-07] MEDS: ATORVASTATIN 40 MG TAB PO SCH (20:55)
[2023-11-07] MEDS: DONEPEZIL HCL 5 MG TAB PO SCH (20:55)
[2023-11-07] MEDS: TRAZODONE 150 MG TAB PO PRN (20:55)
[2023-11-08] MEDS: THYROID 30 MG TAB PO SCH (05:16)
[2023-11-08 05:19] LABS: Absolute Lymphocytes (CBC) 4.9 K/uL (0.7-4.9); Hematocrit 29.4 % (36.0-45.0); Lymphocytes % 39.8 % (15.3-44.8); MCV 91.2 fL (80-100); MPV 8.3 fL (7.6-11.3); Platelets 341 thou/uL (152-406); RBC Red Blood Cell Count 3.22 M/uL (3.86-4.86)
[2023-11-08 07:05] VITALS: BP 144/64; TEMP 97.1
[2023-11-08] MEDS: PANTOPRAZOLE 40MG TABLET PO SCH (07:09)
[2023-11-08] MEDS: CEFTRIAXONE 2,000 MG in NA CHLORIDE 0.9% 100 ML IV SCH (07:10)
[2023-11-08] MEDS: INSULIN REGULAR (HUMAN) 100 UNIT/ML SQ SCH (07:30)
[2023-11-08] MEDS: LIDOCAINE 4% PATCH TOP SCH (08:24)
[2023-11-08] MEDS: DOCUSATE NA 100 MG CAP PO SCH (08:25)
[2023-11-08] MEDS: NYSTATIN PWDR 100000 UNIT/GM TOP SCH (08:25)
[2023-11-08] MEDS: CARBIDOPA/LEVODOPA 25/100 TAB PO SCH (08:25)
[2023-11-08] MEDS: VITAMIN D 5,000 UNIT CAP PO SCH (08:26)
[2023-11-08] MEDS: GABAPENTIN 300 MG CAP PO SCH (08:26)
[2023-11-08] MEDS: ALOGLIPTIN BENZOATE 12.5 MG TABLET PO SCH (08:27)
[2023-11-08] MEDS: FUROSEMIDE 40 MG TABLET PO SCH (08:27)
[2023-11-08] MEDS: PARoxetine HCL 10 MG TAB PO SCH (08:27)
[2023-11-08] MEDS: CLOPIDOGREL 75 MG TABLET PO SCH (08:28)
[2023-11-08] MEDS: ASCORBIC ACID 500 MG TABLET PO SCH (08:28)
[2023-11-08] MEDS: CYANOCOBALAMIN 1,000 MCG TAB PO SCH (08:28)
[2023-11-08] MEDS: POTASSIUM CL SA 10 MEQ TAB PO SCH (08:29)
[2023-11-08] MEDS: FERROUS SULFATE 325 MG TAB PO SCH (08:29)
[2023-11-08] MEDS: carvediloL 6.25 MG TAB PO SCH (08:29)
[2023-11-08] MEDS: APIXABAN 5 MG TABLET PO SCH (08:29)
[2023-11-08] MEDS: MEMANTINE HCL 10 MG TABLET PO SCH (08:30)
[2023-11-08] MEDS: FARXIGA 10 MG PO SCH (08:30)
[2023-11-08] MEDS: COMPLEX PO SCH (08:31)
[2023-11-08] MEDS: CINNAMON 1000 MG PO SCH (08:31)
[2023-11-08 08:43] LABS: Albumin 2.4 g/dL (3.4-5.0); Magnesium 2.8 mg/dL (1.6-2.4)
[2023-11-08] MEDS: HYDRALAZINE HCL 25 MG TABLET PO SCH (08:51)
[2023-11-08] MEDS: SODIUM CHLORIDE 0.9% 10ML INJ IV SCH (08:52)
[2023-11-08] MEDS: AMLODIPINE 5 MG TAB PO SCH (08:52)
[2023-11-08 09:54] LABS: Prealbumin 14.7 mg/dL (20-40)
[2023-11-08] MEDS: GLUCERNA SHAKE 237 ML CAN PO SCH (10:21)
--- NOTE | 2023-11-19 00:12 | DS ---
Date of Discharge: 11/08/2023 Discharge Diagnoses: Cardiac debility, diastolic congestive heart failure, coronary artery disease, diabetes mellitus, hypertension, hyponatremia, thyroidism, Alzheimer disease, atrial fibrillation, st age III kidney failure. Discharge Condition: Good. Discharge Activity: Weightbearing as tolerated. Followup: With youth accommodation support worker, primary care physician, and neurologist as scheduled. Allergies: NO KNOWN DRUG ALLERGIES. Medications: NovoLog FlexPen per protocol, vitamin B12 2500 mcg daily, Lantus insulin 70 units at be dtime, trazodone 100 mg at bedtime, [place] Thyroid 120 mg daily, Paxil 30 mg daily, Protonix 40 mg da sary, memantine 10 mg twice daily, Apresoline 50 mg twice daily, gabapentin 300 mg 3 times daily, Lasi x 40 mg daily, ferrous sulfate 325 mg daily, Aricept 10 mg at bedtime, Colace 100 mg daily, Plavix 75 mg daily, cinnamon bark 1000 mg daily, vitamin D3 5000 international units daily, Coreg 1 tablet twi ce daily, carbidopa and levodopa 25/100 two tablets twice daily, Eliquis 5 mg daily, atorvastatin 40 mg daily, ascorbic acid 500 mg daily, amlodipine 5 mg daily. Laboratory Studies: White blood cell count 12.2, hemoglobin 9.9, platelets 341. Sodium 138, potassi um 4.0, chloride 102, carbon dioxide 32, BUN 22, creatinine 1.46, glucose ranged from 151 to 81, calc ium 8.4, magnesium 2.8, prealbumin 14.7, albumin 2.4. COVID-19 testing on the 31 October is negativ e. Synopsis Of Events That Led To Admission: Ms. Lai is a 78-year-old patient with multiple medical problems including Alzheimer disease, Parkinson disease, who has left chest pain with radiation into the left arm and shortness of breath. The patient had fallen 2 days prior to that. Her daughter wa s worried that she is having myocardial infarction. The patient did have 4-vessel coronary artery by pass grafting chronically. Her evaluation was found that white blood cell count was elevated at 2421 7. She was diagnosed with ischemic heart failure. However, there was no ST-segment myocardial infar ction identified. Blood sugar was elevated at 835 and she was admitted for treatment and management. The patient's dinner did consist of very high carb diet and multiple grains, also found to be dehydrated with stage III kidney failure. She had her diuretics held given IV fluids, beta blo ckers and insulin sliding scale. Also, she was continued with management of her Parkinson disease an d Alzheimer's disease, with trazodone for insomnia and Synthroid for hypothyroidism. Her urine did s how pyuria and again later in the blood. She was diagnosed with urinary tract infections, so she was given Rocephin and vancomycin IV after her cultures grew Staphylococcus pyogenes group A. After completing IV antibiotics course, she was continued on clindamycin, that was continued for 14 days, began on 10/31/2023. She then was evaluated and determined to be a good candidate for [facility] rehabilitation, where she will receive physical, occupational, speech therapy and aggressive manag ement of her comorbid conditions. Hospital Course: Throughout hospitalization, she was followed. Blood pressures were slightly hypote nsive. White blood cell count as noted was initially elevated, but by discharge still elevated, but decreased to 12.2 from 14.4. Her neutrophil count was normal. Creatinine was elevated to 1.46. At discharge, she was hydrated. Pain was managed adequately. Sleep issues addressed. Bowel movements also addressed. Progress Made With Physical, Occupational, And Speech Therapy: By discharge with physical therapy, w ith gait she covered 350 feet with good tolerance on level surface with a rolling walker. She will g o up now 15 steps with good tolerance. Wheelchair mobilization 150 feet multiple times and she did s tand pivot transfer in 4 quadrants as well. She did meet all her long-term and short-term goals and was discharged home with home health to continue therapy. All her durable medical equipment needs we re met. In terms of occupational therapy at discharge; bathing independent, upper body dressing and lower body dressing independent, toileting independent, hence was discharged home to continue with ph ysical and occupational therapy. In terms of speech therapy, moderate assistance with regard to nadir ry, direct supervision for comprehension, independent for automatic speech, minimum assistance for co nversation. She was 100% intelligible. She did improve her BIMS score from 12-15, indicating mild c ognitive deficits. Again, follow up with primary care physician and neurologist as scheduled. Allergies, no known drug allergies. LB/MODL Voice ID: [id number] Report ID: [id number]
== END 2023-11-08 11:40 | disposition home health service (06) | DRG 948 ==
LOC: 5TH 21:20
PROVIDERS: ADMIT Psychiatry & Neurology Neurology with Special Qualifications in Child Neurology; ATTEND Psychiatry & Neurology Neurology with Special Qualifications in Child Neurology
DX: R53.81 Other malaise (principal); I50.30 Unspecified diastolic (congestive) heart failure; E87.1 Hypo-osmolality and hyponatremia; I48.91 Unspecified atrial fibrillation; N19 Unspecified kidney failure; G20.A1 Parkinson's disease without dyskinesia, without mention of fluctuations; I25.10 Atherosclerotic heart disease of native coronary artery without angina pectoris; G30.9 Alzheimer's disease, unspecified; F02.80 Dementia in other diseases classified elsewhere, unspecified severity, without behavioral disturbance, psychotic disturbance, mood disturbance, and anxiety; E11.9 Type 2 diabetes mellitus without complications; E78.5 Hyperlipidemia, unspecified; I11.0 Hypertensive heart disease with heart failure; E03.9 Hypothyroidism, unspecified; I25.2 Old myocardial infarction; Z68.32 Body mass index [BMI] 32.0-32.9, adult
CPT/HCPCS: 36415; 71045; 80048; 82040; 82947; 83735; 83880; 84134; 85025; 87635; 92523; 97110; 97116; 97129; 97163; 97165; 97530; 97542; A4216; J0696; J1815; J2001; J7050

== ENCOUNTER 2024-10-31 11:47 | Inpatient (IN) | payer OTHER ==
--- OUTSIDE RECORDS SUMMARY | 2024-10-31 16:39 | XMS REPORT | Clinical Summary ---
Author Name Unknown Organization [facility] Address [address] [place] [address] Care Team Providers Care Baked And Graphite Inspector Name Role Phone Herb Maier MD Unavailable [phone] Maryam Klein MD Primary Care Provider [phone] Allergies No known active allergies Medications atorvastatin (LIPITOR) 40 mg tablet Take 40 mg by mouth daily. Active ferrous sulfate 325 mg (65 mg elemental iron per tablet) tablet Take 325 mg by mouth daily. Active gabapentin (NEURONTIN) 300 mg capsule Take 300 mg by mouth 3 (three) times a day. Active insulin aspart U-100 (NovoLOG Flexpen U-100 Insulin) 100 unit/mL insulin pen Inject 55 Units under the skin daily. 55u at am 10 u lunch Active insulin aspart U-100 (NovoLOG Flexpen U-100 Insulin) 100 unit/mL insulin pen Inject 50 Units under the skin at bedtime. Active insulin glargine (LANTUS) 100 units/mL injection Inject 80 Units under the skin at bedtime. Right before bed time Active losartan (COZAAR) 25 mg tablet Take 25 mg by mouth daily. Active pantoprazole (PROTONIX) 40 mg EC tablet Take 40 mg by mouth daily. Active PARoxetine (PAXIL) 20 mg tablet Take 40 mg by mouth daily. Active solifenacin (VESICARE) 10 MG tablet Take 10 mg by mouth daily. Active thyroid (ARMOUR THYROID) 120 mg tab tablet Take 120 mg by mouth daily. Active ticagrelor (BRILINTA) 90 mg tab tablet Take 90 mg by mouth twice daily. Active traZODone (DESYREL) 100 mg tablet Take 100 mg by mouth at bedtime. Active aspirin 81 mg chewable tablet Chew 81 mg daily. Active Active Problems Problem Noted Date Diagnosed Date Chronic lymphoid leukemia, disease 05/29/2018 Lymphocytosis 05/29/2018 Hypertension History of placement of stent for coronary arter y disease H/O: pacemaker in situ Hypothyroidism Diabetes mellitus Depressive disorder Anxiety Surgical History Surgery Date Site/Laterality Comments APPENDECTOMY COLONOSCOPY CORONARY ARTERY BYPASS GRAFT Medical History Medical History Date Comments Chronic lymphoid leukemia, disease 05/29/2018 Lymphocytosis 05/29/2018 Hypertension Myocardial infarction History of placement of stent for coronary arter y disease H/O: pacemaker in situ Heart valve disorder Disorder of thyroid gland Diabetes mellitus Depressive disorder Anxiety Herpes zoster Family History Medical History Relation Name Comments -Gastrointestinal (Esophagus , Liver, Bile Duct, Stomach, Pancreas, Colon, Rectum, Anus Mother Mother Relation Name Status Comments Mother Mother Social History Tobacco Use Types Packs/Day Years Used Date Smoking Tobacco: Never Smokeless Tobacco: Never Alcohol Use Standard Drinks/Week Comments No 0 (1 standard drink = 0.6 oz pur e alcohol) Comments Unknown Sex and Gender Information Value Date Recorded Sex Assigned at Not on file Legal Sex Female 8:16 AM CDT Gender Identity Not on file Sexual Orientation Not on file Obstetrics History Plan of Treatment Health Maintenance Due Date Last Done Comments Pneumococcal Vaccine: 65+ Years (1 of 1 - PCV) 012 COVID-19 Vaccine ( - 2023- season) 2024 Influenza Vaccine (#1) 2024 Insurance MEDICARE PART A AND B [employer] [place] [id number] [place] [id number] MEDICARE PART A AND B [place] [id number] [employer] LIFE Care Teams Baked And Graphite Inspector Relationship Specialty Start Date End Date Herb Maier MD [address] [place] [address] [email or web address] PCP - External Referring Family Practice 05/14/18 Maryam Klein MD [address] [place] [address] [email or web address] PCP - General Medical Oncology 05/30/18
[2024-10-31] MEDS: CARBIDOPA/LEVODOPA 25/100 TAB PO SCH (17:00)
[2024-10-31] MEDS ORDERED: GLUCAGON 1 MG/VIAL IM PRN (17:03)
[2024-10-31 17:15] VITALS: BMI 29.0
[2024-10-31] MEDS ORDERED: ALBUTEROL 2.5 MG/3 ML NEB SOL NEB PRN (18:11)
[2024-10-31] MEDS ORDERED: DOCUSATE NA/SENNA CONC 1 TAB PO PRN (18:17)
[2024-10-31] MEDS ORDERED: MELATONIN 3 MG TABLET PO PRN (18:17)
[2024-10-31] MEDS: INSULIN GLARGINE 100 UNIT/ML SQ SCH (20:15)
[2024-10-31] MEDS: GABAPENTIN 300 MG CAP PO SCH (20:16)
[2024-10-31] MEDS: carvediloL 6.25 MG TAB PO SCH (20:16)
[2024-10-31] MEDS: HEPARIN 5000 UNIT/ML 1 ML VIAL SQ SCH (20:16)
[2024-10-31] MEDS: INSULIN REGULAR (HUMAN) 100 UNIT/ML SQ SCH (20:16)
[2024-10-31] MEDS: ATORVASTATIN 40 MG TAB PO SCH (20:16)
[2024-10-31] MEDS ORDERED: INSULIN GLARGINE 100 UNIT/ML SQ SCH (21:00)
--- NOTE | 2024-10-31 22:37 | HP ---
Date of Admission: 10/31/2024 Time Of Service: 5 p.m. Chief Complaint: "I fell and broke my right hip." History Of Present Illness: Ms. Lai is a 79-year-old patient with coronary artery disease, conge stive heart failure, [id number] Alzheimer's disease, GI bleed, dyslipidemia, hypertension, recu rrent infarction, anemia, chronic lymphocytic leukemia, and of course Parkinson's disease, who was wa lking at home in dark when she fell. She is on Eliquis and Plavix for her atrial fibrillation as wel l. When she fell at home, she impacted the right side and had severe pain and could not bear weight. She was evaluated and found to have right hip fracture. Prior to the fall, she was diagnosed with pneumonia and was admitted to hospital and discharged home on 6 L of oxygen and she did not previousl y require oxygen. She was seen at [facility] where the fracture was identified. She was transferred to [facility] for higher level of care and surgical interve ntion. She underwent cephalomedullary meredith nailing of her right femur on 10/25 [facility] status on the right lower extremity. She was seen by the Cardiology and Pulmonol ogy Service. She did have acute pulmonary edema that was addressed. CHF addressed. Respiratory did see her and found she had chronic respiratory failure with hypoxia. She did receive Lasix twice alma ly 20 mg, and attempt was made to wean off oxygen, but she is still requiring oxygen. She was put on cefepime, vancomycin, and metronidazole to complete treatment for pneumonia. Comorbidities of hyper tension treated with carvedilol along with hold parameters in place. Diabetes treated with insulin c overage, lispro Lantus which she was taking 70 units at home. She was on carbidopa/levodopa for Park inson's disease, Atorvastatin for dyslipidemia, Paxil and trazodone for depression and insomnia. Pos toperatively, she did have anemia and had a unit of packed red blood cells on . She did require a nd still does require further continuous monitoring to evaluate her and the blood count to determine if more blood transfusion is required. At this point, did require a [place] for urinary retention and we will attempt to do bladder training when in the unit. At this point, she requires moderate to max imum assistance for bed mobilization, supervision for upper body dressing, maximal assistance for low er body dressing, toileting, and ambulation. She does not have steps at home after going, but will b e able to work on steps. She was cleared medically and now is ready for inpatient rehabilitation. H er white blood cell count which is elevated to 15.6 is to be followed. Hemoglobin 8.5, also to be fo llowed. Creatinine 1.41 and BUN 44. She of course need continued monitoring of her pulmonary status or cardiovascular status, volume status to reduce risk of her worsening. Inpatient rehabilitation w ill minimize the risk of rehospitalization and help her to return towards her prior level of function ing. Past Medical History: As noted above including chronic lymphocytic leukemia, chronic anemia, infarct ion, Alzheimer's disease, hypothyroidism, hypertension, dyslipidemia, GI bleed, diabetes mellitus typ e 2, congestive heart failure. Past Surgical History: She has 4-vessel cardiac bypass surgery, appendectomy, cardiac stents x3, pac emaker placement, tonsillectomy, right foot surgery. Allergies: NO KNOWN DRUG ALLERGIES. Current Medications: Tylenol 500 mg every 6 hours as needed, Eliquis 5 mg daily, Lipitor 40 mg at be dtime, Sinemet 25/100 at 7, 12, 5, and at 9 p.m., Coreg 6.25 mg twice daily, Plavix 75 mg daily, ford pentin 300 mg 3 times daily. Currently, she has heparin 5000 units twice daily, [place] 5/325 every 6 hours as needed, Semglee insulin 10 units with breakfast and 50 units at bedtime Cozaar 25 mg daily, Namenda 5 mg daily, Protonix 40 mg daily. Laboratory Studies: White blood cell count 15.61, hemoglobin 8.5, hematocrit 27.8, platelets 267. S odium , glucose 170, BUN 44, creatinine 1.41, calcium 8.0. Family History: Noncontributory. Current Level Of Functioning: Currently, supervision for eating and grooming, maximum assistance for bathing, moderate assistance for upper body dressing, maximum assistance for lower body dressing and donning and doffing of footwear, transferring to toilet and shower at maximal assistance level. Amb ulation, maximal assistance, covered 1 foot. Physical Examination: Vital Signs: Blood pressure 125/47, pulse 61, temperature 97.9, oxygen saturation 91%, respiratory r ate 16. Height 5 feet 7 inches, weight 185, BMI 29. General: Ms. Lai is lying in bed. HEENT: She is normocephalic, atraumatic. Sclerae anicteric. Oropharynx moist. Neck: Supple. Chest: Clear. Extremities: Show no significant edema cyanosis, postoperative. She has good hemostasis of the righ t hip surgical site. There is mild edema noted in the right lower extremity, likely related to posto perative state. Neurologic: No focal deficits in terms of cranial, motor, sensory, and coordination examination, exp ected reduced exertion because of recent surgery in the right hip. Pain around 3 or 4 perhaps out of 5 and somewhat less per the patient's daughter, transferring pain may go up to 8/10. Plan: 1.She will have physical, occupational, and speech therapy for 3.5 hours, 5 of 7 days. 2.She will have continuation of Eliquis 2.5 mg now twice daily along with Plavix 75 mg daily. She h as heparin on board as well. She has [place] for pain, Coreg for heart rate and blood pressure control along with Cozaar. She has Protonix for GE reflux, Namenda for dementia, Semglee insulin for diabet es control. We will likely also add Hemocyte plus, ferrous sulfate, and Glucerna to address protein status and her hemoglobin. Comorbidities That Are Impacting Rehabilitation: She is at significant risk of bleeding given the El iquis, Plavix, fall precautions strictly adhered to, gait belt with wheelchair in tow when she is att empting ambulation. She does have weightbearing as tolerated status to the right lower extremity. H owever, she again will have caution as appropriate, chair and bed alarm if need be. Her blood sugars will be carefully controlled. Insulin may be adjusted as appropriate. Latest blood sugar 119. Blo od pressures also will be addressed carefully along with her volume status given the CHF. She does h ave mild cough. She will have nebulizer treatment on board, incentive spirometry in place, and chest x-ray as needed. Rehab Specific Plan: Ms. Lai will have physical, occupational, and speech therapy if need be 3.5 hours, 5 of 7 days to improve her ability to transfer from bed to a chair to a wheelchair to a toile t, in and out of shower. Also to be able to ambulate more than household distances around the unit o f 250 feet and to go up and down 10 steps with bilateral handrails, propel a wheelchair 25 0 feet as well. All of those will be worked on to become independent. The patient[facility] where she has a caregiver and 2 daughters who live nearby. They are going to be very helpfu l as they plan to be with her as much as possible along with a caregiver. She will have Speech to wo rk on cognition, processing, dementia for her to comprehend her situation, for planning, f or safety awareness to reduce the risk of additional falls and further injury. Ms. Lai and her daughter have a good understanding of the process of inpatient rehabilitation and how they will benefit from physical, occupational, and speech therapy. She will have 24 hours a day , 7 days a week skilled rehabilitation nursing, daily physician evaluation and management, and social service evaluation and management for discharge planning, home equipment. Follow up after discharge . Continue medications and to follow up with the orthopedic surgeons. If need be, additional help w ill be sought from the Hospitalist Service and local orthopedic service. Barriers To Discharge: Currently, the patient's barriers do include pain, she has had postop anemia requiring a unit of blood, may require additional units. She does have a followup for pneumonia and requiring higher level of oxygen by nasal cannula. Attempt will be to wean her off oxygen fully at h ome, but she did not require oxygen for the pneumonia. Length Of Stay: About 2 weeks 17 days. Disposition: Expected to be home with family and continue therapy via Home Health. Prognosis: Good. Code Status: Full code. Rehab Specific Goals: 1.Become independent with upper and lower body dressing and donning and doffing footwear. 2.Independent with showering and all activities of daily living. 3.Independently mobilize a wheelchair 250 feet. 4.Independently mobilize a rolling walker 250 feet. 5.Independently go up and down 10 steps with bilateral handrails. 6.Independently perform all cognitive functioning. The above goals were reviewed with Ms. Lai and her daughter and they are in agreement. By signing this document, I acknowledge I personally performed a full physical examination on Ms. Tameka benjamin no later than 24 hours after her admission [facility] [place] that she is able to tolerate the above course of treatment at an intensive level for reasonable pe riod of time. A detailed individualized plan of care for her will be completed by hospital day 4 bas ed on the preadmission screen, history and physical, and therapy evaluations. NORMA Voice ID: [id number]
[2024-11-01 00:31] LABS: Specific Gravity 1.021 (1.005-1.030); Sqamous Epithelial None Seen /HPF (None Seen); Urine Bacteria None Seen /HPF (<20); Urine Bilirubin NEGATIVE (Negative); Urine Blood 1+ (Negative); Urine Clarity Clear (Clear); Urine Color Yellow (Yellow); Urine Crystals Unidentified Few /HPF (None Seen); Urine Culture Reflex Order NOT NEEDED; Urine Glucose NEGATIVE (Negative); Urine Ketones NEGATIVE (Negative); Urine Micro Reflex YN NO BILL MICROSCOPIC; Urine Mucus Slight /HPF (None Seen); Urine Nitrite NEGATIVE (Negative); Urine Protein 1+ (Negative); Urine RBC <5 /HPF (None Seen); Urine Urobilinogen Normal (Normal); Urine WBC <5 /HPF (<5)
[2024-11-01] MEDS ORDERED: HEPARIN 5000 UNIT/ML 1 ML VIAL SQ SCH (01:00)
[2024-11-01 05:25] LABS: Absolute Eosinophils 0.1 K/uL (0-0.5); Absolute Monocytes 0.5 K/uL (0.1-1.3); Absolute Neutrophil 7.6 K/uL (1.8-8.0); Basophils % 0.3 % (0-1.3); Hematocrit 24.6 % (36.0-45.0); Hemoglobin 8.2 g/dL (12.0-15.0); Lymphocytes % 37.6 % (15.3-44.8); MCH 29.2 pg (27.0-35.0); MCHC 33.2 g/dL (32.0-36.0); MCV 87.8 fL (80-100); Monocytes % 3.6 % (3.3-12.3); Neutrophils % 57.5 % (41.7-73.7); Nucleated Red Blood Cells % 0.1 % (0-0); Platelets 339 thou/uL (152-406); Red Cell Distribution Width 14.3 % (12.1-15.2)
[2024-11-01 05:44] LABS: Albumin 2.1 g/dL (3.4-5.0); Anion Gap 5.8 mEq/L (5.0-15.0); Magnesium 2.5 mg/dL (1.6-2.4); Potassium 3.8 mEq/L (3.5-5.1); Prealbumin 12.4 mg/dL (20-40)
[2024-11-01] MEDS: PANTOPRAZOLE 40MG TABLET PO SCH (06:55)
[2024-11-01] MEDS: LOSARTAN POTASSIUM 50 MG TABLET PO SCH (07:01)
[2024-11-01] MEDS: MEMANTINE HCL 10 MG TABLET PO SCH (07:12)
[2024-11-01] MEDS: FUROSEMIDE 40 MG/4 ML VIAL IV SCH (08:00)
[2024-11-01] MEDS: ACETAMINOPHEN 500 MG TAB PO PRN (08:14)
[2024-11-01] MEDS: PARoxetine HCL 10 MG TAB PO SCH (08:14)
[2024-11-01] MEDS: INSULIN GLARGINE 100 UNIT/ML SQ SCH (08:22)
[2024-11-01] MEDS: FUROSEMIDE 40 MG TABLET PO SCH (09:42)
--- NOTE | 2024-11-01 10:33 | RAD REPORT ---
EXAMINATION: ONE VIEW CHEST XR CLINICAL INDICATION: cough TECHNIQUE: Frontal chest projection is submitted. Examination is limited by patient positioning and t echnique. COMPARISON: 11/07/2023 FINDINGS: Mild interstitial pulmonary edema suspected. The heart is upper limit of normal in size. No displaced fractures identified. Sternotomy wires. Dual lead pacer device. IMPRESSION: Mild interstitial pulmonary edema suspected.
[2024-11-01] MEDS: guaiFENesin 100 MG/5 ML UCUP PO PRN (11:27)
[2024-11-01] MEDS: FERROUS SULFATE 325 MG TAB PO SCH (12:10)
[2024-11-01] MEDS: HYDROCODONE/APAP 5/325 MG TAB PO PRN (12:12)
[2024-11-01] MEDS: GLUCERNA SHAKE 237 ML CAN PO SCH (20:54)
[2024-11-03] MEDS: APIXABAN 2.5 MG TABLET PO SCH (07:22)
[2024-11-03 07:49] LABS: Absolute Eosinophils 0.3 K/uL (0-0.5); Absolute Lymphocytes (CBC) 5.5 K/uL (0.7-4.9); Absolute Monocytes 0.6 K/uL (0.1-1.3); Absolute Neutrophil 6.3 K/uL (1.8-8.0); Basophils % 0.3 % (0-1.3); Eosinophils % 2.1 % (0-4.4); Hematocrit 26.1 % (36.0-45.0); Hemoglobin 8.8 g/dL (12.0-15.0); Lymphocytes % 43.3 % (15.3-44.8); MCH 29.7 pg (27.0-35.0); MCHC 33.7 g/dL (32.0-36.0); MCV 88.2 fL (80-100); Monocytes % 4.6 % (3.3-12.3); Neutrophils % 49.7 % (41.7-73.7); Nucleated Red Blood Cells % 0.2 % (0-0); Platelets 385 thou/uL (152-406); RBC Red Blood Cell Count 2.96 M/uL (3.86-4.86); Red Cell Distribution Width 14.4 % (12.1-15.2)
[2024-11-03] MEDS ORDERED: APIXABAN 5 MG TABLET PO SCH ×2 (08:00)
[2024-11-03] MEDS: CLOPIDOGREL 75 MG TABLET PO SCH (08:06)
[2024-11-03] MEDS: TRAMADOL HCL 50 MG TAB PO PRN (10:19)
[2024-11-03] MEDS: LIDOCAINE 4% PATCH TOP SCH (10:19)
[2024-11-03] MEDS: BENZONATATE 100 MG CAP PO SCH (12:33)
[2024-11-03] MEDS: HYDROCODONE/APAP 5/325 MG TAB PO PRN (13:45)
[2024-11-03] MEDS: GABAPENTIN 300 MG CAP PO SCH (19:53)
[2024-11-03] MEDS: TRAMADOL HCL 50 MG TAB PO SCH (19:54)
--- NOTE | 2024-11-04 00:05 | PN ---
Date of Progress Note: 11/03/2024 Time Of Service: 1:35 p.m. Subjective: Ms. Lai is doing very well with therapy. No new complaints. Able to have a jovial approach to her therapy, is always very happy at the time of my evaluation. Objective: Mild pain in the right intertrochanteric region, but it does not limit her from doing her therapy. Review of Systems: No fevers, chills, nausea, vomiting. No significant myalgias, arthralgias. No rash. No psychiatric complaints. Physical Examination: Vital Signs: Blood pressure 137/62, pulse 65, respiratory rate 18, temperature 98.3, oxygen saturati on 96%. General: Ms. Lai is sitting on the side of the bed with therapist next to her. HEENT: She appears normocephalic, atraumatic. Sclerae anicteric. Oropharynx pink, moist. Neck: Supple. Chest: Clear. Extremities: Right intertrochanteric femur repair site has good hemostasis. Laboratory Studies: White blood cell count did go down slightly to 12.7 from 13.3. Neutrophils and lymphocytes are normal. Her electrolytes show sodium 136, potassium 4.0, BUN 24, creatinine 1.09, gl ucose did range from 235 to 326. Her insulin dosage was increased, which is Semglee insulin in the m orning 15 units, now set to start tomorrow morning and 25 units at bedtime, and medications adjusted of course accordingly to decrease the risk of severe hypoglycemia. Her calcium level is 7.5 and she has calcium supplementation on board. Medications: Tylenol Extra Strength 500 mg every 6 hours, Reading 5/325 every 6 hours as needed, albut africa nebulizer 2.5 mg every 6 hours as needed, Eliquis 2.5 mg twice daily, Lipitor 40 mg at bedtime, Tessalon Perles 100 mg twice daily, carbidopa/levodopa 25/100 four times daily for Parkinson disease, Coreg 6.25 mg twice daily for hypertension, Plavix 75 mg daily for stroke risk reduction. She has G lucerna Shakes 237 mL twice daily, ferrous sulfate 325 mg daily, Lasix 40 mg daily, gabapentin 600 mg twice daily, Robitussin 200 mg every 4 hours as needed, Semglee insulin 25 units at bedtime and 15 u nits with breakfast and an insulin sliding scale, melatonin 3 mg at bedtime, memantine 5 mg daily, Pr otonix 40 mg daily, Paxil 30 mg daily, Senokot-S 2 at bedtime, Ultram 50 mg every 6 hours as needed, and tramadol 50 mg twice daily scheduled. Progress Made With Physical And Occupational Therapy: With her physical therapy today, she was able to mobilize wheelchair 160 feet with standby assistance. Vmd-ir-zeuln transfers done with maximum as sistance. Multiple [id number] transfers done with maximum assistance. Toilet transfer also with maximum assistance. With her occupational therapy, partial transfers, supine to sit with assistance of trunk and right lower extremity being required. She did have some ice, right hip to decrease her swelling and pain and again pain medications were adjusted. She is followed by Speech Therapy and a weekly assessment. She did score a 12 on the BIMS and SLUMS score is 16. Assessment And Plan: Ms. Lai is a 79-year-old patient in the rehabilitation unit with a right in tertrochanteric femur fracture, status post repair, for which she is making fair overall progress. H er blood sugars have been somewhat elevated, but her Semglee insulin is being adjusted. She has a sl iding scale. Pain is managed by multiple modalities, including tramadol. She has the gabapentin. S he has Tylenol. Her bowel movement issues were addressed with stool softener and laxative. She has guaifenesin for cough, melatonin for insomnia, Cozaar for hypertension. Coreg also addressing hypert ension. For Parkinson disease, she has Sinemet. Lipitor for dyslipidemia. Plan: 1.She will continue with physical, occupational, and speech therapy 3.5 hours, 5 of 7 days. 2.Her list of comorbid conditions are addressed by continuing current medications. Adjustments agai n made to blood sugar treatment and will be followed on an ongoing basis for additional adjustment as appropriate. Pain is currently being addressed by scheduling tramadol and having an adjustment to gabapentin dosage, which was increased to 600 mg twice daily fro m 300 mg 3 times daily. LB/MODL Voice ID: [id number] Report ID: [id number]
[2024-11-04] MEDS: CRANBERRY FRUIT EXTRACT 425 MG CAPSULE PO SCH (07:41)
[2024-11-04] MEDS: CALCIUM CARB 500MG/VIT D 200 IU TAB PO SCH (07:41)
[2024-11-04] MEDS: INSULIN GLARGINE 100 UNIT/ML SQ SCH (08:42)
--- NOTE | 2024-11-04 21:37 | PN ---
Date of Progress Note: 11/04/2024 Time Of Service: 1:25 p.m. Subjective: Ms. Lai is very happy with how she is doing. She is sitting at the side of the bed, ready for next session of therapy. She has no new complaints. Her right intertrochanteric femur fr acture site she says the pain is up to about 6 and she is however not wanting any new adjustment in m edications at this point. Also sleeping well and no other new complaints. Objective: Some jznl-pu-jqhpjhsj pain in the right hip intertrochanteric site. Otherwise, she denie s any fevers, chills, nausea, vomiting. Physical Examination: Vital Signs: Blood pressure 116/56, pulse 62, respiratory rate 17, temperature 98.3, oxygen saturati on 99%. General: Ms. Lai is sitting at the side of the bed. HEENT: She is normocephalic, atraumatic. Sclerae anicteric. Oropharynx pink and moist. Extremities: Her right hip intertrochanteric fracture site that has surgical repair has good hemosta sis. Laboratory Studies: No new laboratory studies today except blood sugars ranged from 132 to 227. X-ray/imaging: No new x-rays or imaging. Medications: Medications have been reviewed and remain unchanged. She is on DVT prophylaxis with El iquis. She has Senokot for constipation, tramadol for pain. Progress Made With Physical, Occupational, And Speech Therapy: Today with physical therapy, she comp leted bed mobility twice, but was at a maximum assistance level. She did have again better pain darshan gement. She used the leg plastic tool maker and was able to do that, but do require significant assistance. She did mobilize a wheelchair 75 feet with standby to contact guard assistance using bilateral upper ext remities. With occupational therapy, tolerated upper body and core strengthening exercises in bed an d the overhead presses 2 times 20 repetitions with Thera-Band, triceps curls, horizontal diagonal pul ls, and shoulder throws 2 sets of 20. She did refuse to get out of bed at the time the therapist is working with her. Regarding speech, organizational thinking used for convergent naming tasks for con crete categories with 100% accuracy and minimum assistance. Divergent naming was completed with 5 co ncrete categories with 100% accuracy and maximum assistance. She was oriented to month, but not to d ate, day, or year. She was not oriented to spatial information, could not state what town or [facility] floor or room she is currently in. Assessment: Ms. Lai is a 79-year-old patient with right intertrochanteric femur fracture, status post surgical repair. She has significant cognitive impairment and difficulty with orientation, rec alling information, and difficulty processing information. In addition, also to maintain good safety awareness. She has decreased mobility, decreased physical functioning, and of course the dementia a s noted. She has depression, diabetes mellitus, neuropathic pain, issues of fluid management, hypert ension, Parkinson's disease, dyslipidemia, and of course pain. Given the state of cognitive impairme nt, she likely will require 24-hour supervision for safety awareness after discharge and she will lik ubaldo require if not at home, a [facility] to continue therapy and later likely a memory care unit as well. Plan: Otherwise in terms of her plan, she will continue with physical, occupational, and speech ther apy 3.5 hours, 5 of 7 days. Continue with current medication list. MESHA/FARIHA Voice ID: [id number] Report ID: [id number]
[2024-11-05] MEDS: SENOSIDES 8.6 MG TAB PO SCH (08:06)
[2024-11-05] MEDS: DOCUSATE NA/SENNA CONC 1 TAB PO SCH (20:41)
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
[2024-11-06 07:09] LABS: Absolute Eosinophils 0.2 K/uL (0-0.5); Absolute Lymphocytes (CBC) 4.9 K/uL (0.7-4.9); Absolute Monocytes 0.8 K/uL (0.1-1.3); Absolute Neutrophil 6.6 K/uL (1.8-8.0); Basophils % 0.2 % (0-1.3); Eosinophils % 1.6 % (0-4.4); Hematocrit 23.7 % (36.0-45.0); MCH 30.1 pg (27.0-35.0); MCHC 33.8 g/dL (32.0-36.0); MCV 89.1 fL (80-100); Monocytes % 6.4 % (3.3-12.3); Neutrophils % 52.8 % (41.7-73.7); Nucleated Red Blood Cells % 0.1 % (0-0); Platelets 416 thou/uL (152-406); RBC Red Blood Cell Count 2.66 M/uL (3.86-4.86); Red Cell Distribution Width 15.5 % (12.1-15.2)
[2024-11-06 07:13] LABS: Albumin 2.4 g/dL (3.4-5.0); Anion Gap 7.5 mEq/L (5.0-15.0); Magnesium 2.3 mg/dL (1.6-2.4); Potassium 4.5 mEq/L (3.5-5.1); Prealbumin 14.1 mg/dL (20-40)
--- NOTE | 2024-11-06 15:34 | RAD REPORT ---
EXAMINATION: ONE VIEW CHEST XR CLINICAL INDICATION: ams TECHNIQUE: Frontal chest projection is submitted. Examination is limited by patient positioning and t echnique. COMPARISON: 11/01/2024 FINDINGS: Mild interstitial pulmonary edema. The heart is upper limit of normal in size. No displaced fractures identified. Sternotomy wires. Dual lead pacer device. IMPRESSION: Mild CHF.
[2024-11-06] MEDS: LOPERAMIDE HCL 2 MG CAPSULE PO PRN (15:37)
--- NOTE | 2024-11-06 15:38 | RAD REPORT ---
EXAMINATION: XR RIGHT HIP CLINICAL INDICATION: . WORSENING PAIN S/P R HIP FX RIGHT TECHNIQUE: Multiple views of the right hip were obtained. COMPARISON: No prior exam. FINDINGS: Proximal right femoral nail is in place. Ununited right intertrochanteric fracture noted. N o hardware complication. No evidence of AVN.
[2024-11-06 17:37] LABS: Specific Gravity 1.005 (1.005-1.030); Urine Bilirubin NEGATIVE (Negative); Urine Blood Negative (Negative); Urine Clarity Clear (Clear); Urine Color Colorless (Yellow); Urine Glucose NEGATIVE (Negative); Urine Ketones NEGATIVE (Negative); Urine Microscopic Reflex YN NO UMIC; Urine Nitrite NEGATIVE (Negative); Urine Protein NEGATIVE (Negative); Urine Urobilinogen Normal (Normal)
--- NOTE | 2024-11-06 22:16 | PN ---
Date of Progress Note: 11/06/2024 Time Of Service: 1:50 p.m. Subjective: Today, Ms. Lai is more subdued. Staff said, more confused, disoriented, not knowing where she was, not being able to place her hand on the wheelchair to mobilize the wheelchair. At th e time I evaluated her, she had a bowel movement and did not realize it and was kind of sitting in th ere. Staff was able to come in and clean her. We did order chest x-ray and urinalysis. She did rep ort some more pain in the right hip. Two-view x-rays were done. The hip x-ray showed proximal right femur nail is in place. There is an ununited right intertrochanteric fracture noted. No hardware c omplications. No evidence of avascular necrosis seen. In addition, a chest x-ray showed mild CHF pa ttern. Sternal wires noted with dual lead placement in place. Objective: Again, she is complaining of a lot of fatigue. Difficult to stay fully engaged. Had to be stimulated somewhat for her to interact. Reported significant amount of pain in the right hip are a. Of course, x-ray as reported above showed no change and no worse findings. Physical Examination: Vital Signs: Blood pressure 149/87, pulse 84, respiratory rate 18, temperature 98.4, oxygen saturati on 98%. General: Ms. Lai is lying in bed. She did have a bowel movement and did not realize it, and it is spreading around the sides and she is being cleaned up. HEENT: She does appear normocephalic, atraumatic. Sclerae anicteric. Oropharynx pink and moist. Neck: Supple. Musculoskeletal: She did have of course significant pain noted with good hemostasis at the right hip surgical site, but lot of cleaning had to be done. Neurologic: Somewhat difficult following simple commands and recalling what is going on and where sh e is. Laboratory Studies: As noted. White blood cell count today is 12.5; on November 01 was 13.3. Neutr ophil today 52.8. Her hemoglobin is 8.0, platelets 416. Sodium 133, potassium 4.5, chloride 100, ca rbon dioxide 30, BUN 29, creatinine 1.08, glucose ranged from 71 to 146. Calcium is 8.3, magnesium 2 .3. Albumin 2.4, prealbumin 14.1. She did have a repeat urinalysis, so far completely negative for glucose, ketones, nitrite, urobilinogen; negative esterase; negative total urine protein. Medications: Medications have been reviewed. She is on Imodium for diarrhea, which is now 2 mg ever y 4 hours. Senokot is being held. She did receive 2 tablets last night, which may be a contributing factor to the loose stools. Progress Made With Physical, Occupational, And Speech Therapy: Today, with physical therapy, she did multiple depqyp-gp-evu transfers, but required maximum assistance. Uep-hh-lhoye transfers, required maximum assistance as well. Toilet transfer, maximum assistance. She is dependent for perineal car e. Her wheelchair mobilization covered 105 feet with moderate assistance and verbal cues. She did h ave more confusion as noted. With occupational therapy, maximum assistance for mbd-uv-gbtxd transfer . Dependent x2 for wheelchair to edge of bed transfer. In supine, the patient also with moderate to maximum assistance. Again, noted to be more confused today. With speech, she was able to recall 3 o f 3 unrelated pictures after 1 minute independently at the first attempt; however, following that att empt, maximum assistance required to recall 3 of 3 unrelated items after a minute. She needed modera te assistance for cause effect relationship at a 70% accuracy level. Assessment: Ms. Lai is a 79-year-old patient in the rehabilitation unit with a right intertrocha nteric hip fracture, status post surgical repair. She has dementia and has had some worsening confus ion, and did a bowel movement on her own without realizing it. She also has moderate anemia with hem oglobin of 8. Her x-ray of the hip shows no unexpected findings. Chest x-ray shows no pneumonia. U rinalysis is unremarkable. She is afebrile. White blood cell count also is slightly elevated, but b een stable since her admission. Neutrophils are normal. She does have comorbidities, of course rosey ntia, hypertension, diabetes, neuropathic pain, Parkinson disease with dyslipidemia. Plan: She will continue with physical, occupational, and speech therapy. Continue all comorbid cond ition medications. She does have the Imodium. We will hold any stool softeners for now. Given her significant impairment in cognitive function, she is unable to be independent at home, and will requi re 24-hour 7-day a week someone for safety awareness. The facility such as [facility]pc or memory care unit will be recommended, not recommended to be at home unless there is 24-hour care provided, and a professional person is recommended over family unless they are trained in how to manage someone with cognitive issues, where she is at significant risk of falling and injuring herself, especially since she already has a hip fracture. MESHA/FARIHA Voice ID: [id number] Report ID: [id number]
--- NOTE | 2024-11-07 13:33 | P.RH.PN ---
Estimated Length of Stay: 16 Expected Discharge Date: 11/12/24 Discharge Disposition Plan: Home Family Support: Yes Longterm Goal: Mobility, Transfers, Self Care Vital Signs: Last Vital Signs Temp 98.9 F 11/07/24 08:00 Pulse 64 11/07/24 08:26 Resp 16 11/07/24 08:00 BP 145/65 H 11/07/24 08:26 Pulse Ox 97 11/07/24 08:00 Laboratory: Laboratory Last Values WBC 12.50 thou/uL (4.3-10.9) H 11/06/24 06:32 RBC 2.66 M/uL (3.86-4.86) L 11/06/24 06:32 Hgb 8.0 g/dL (12.0-15.0) L 11/06/24 06:32 Hct 23.7 % (36.0-45.0) L 11/06/24 06:32 MCV 89.1 fL (80-100) 11/06/24 06:32 MCH 30.1 pg (27.0-35.0) 11/06/24 06:32 MCHC 33.8 g/dL (32.0-36.0) 11/06/24 06:32 RDW 15.5 % (12.1-15.2) H 11/06/24 06:32 Plt Count 416 thou/uL (152-406) H 11/06/24 06:32 MPV 8.0 fL (7.6-11.3) 11/06/24 06:32 Neutrophils % 52.8 % (41.7-73.7) 11/06/24 06:32 Lymphocytes % 39.0 % (15.3-44.8) 11/06/24 06:32 Monocytes % 6.4 % (3.3-12.3) 11/06/24 06:32 Eosinophils % 1.6 % (0-4.4) 11/06/24 06:32 Basophils % 0.2 % (0-1.3) 11/06/24 06:32 Absolute Neutrophils 6.6 K/uL (1.8-8.0) 11/06/24 06:32 Absolute Lymphocytes 4.9 K/uL (0.7-4.9) 11/06/24 06:32 Absolute Monocytes 0.8 K/uL (0.1-1.3) 11/06/24 06:32 Absolute Eosinophils 0.2 K/uL (0-0.5) 11/06/24 06:32 Absolute Basophils 0.0 K/uL (0-0.5) 11/06/24 06:32 Sodium 133 mEq/L (136-145) L 11/06/24 06:32 Potassium 4.5 mEq/L (3.5-5.1) 11/06/24 06:32 Chloride 100 mEq/L (98-107) 11/06/24 06:32 Carbon Dioxide 30 mEq/L (21-32) 11/06/24 06:32 Anion Gap 7.5 mEq/L (5.0-15.0) 11/06/24 06:32 BUN 29 mg/dL (7-18) H 11/06/24 06:32 Creatinine 1.08 mg/dL (0.55-1.02) H 11/06/24 06:32 Est GFR (CKD-EPI) 53 ml/min (=/>90) L 11/06/24 06:32 Glucose 72 mg/dL (74-106) L 11/06/24 06:32 POC Glucose 140 mg/dL (65-120) H 11/07/24 11:13 Calcium 8.3 mg/dL (8.5-10.1) L 11/06/24 06:32 Magnesium 2.3 mg/dL (1.6-2.4) 11/06/24 06:32 Albumin 2.4 g/dL (3.4-5.0) L 11/06/24 06:32 Prealbumin 14.1 mg/dL (20-40) L 11/06/24 06:32 Urine Color Colorless (Yellow) 11/06/24 16:55 Urine Clarity Clear (Clear) 11/06/24 16:55 Urine pH 5.0 (5.0-7.0) 11/06/24 16:55 Ur Specific [place] 1.005 (1.005-1.030) 11/06/24 16:55 Glucose (UA)(Auto) Negative (Negative) 11/06/24 16:55 Urine Ketones Negative (Negative) 11/06/24 16:55 Urine Blood Negative (Negative) 11/06/24 16:55 Urine Nitrite Negative (Negative) 11/06/24 16:55 Urine Bilirubin Negative (Negative) 11/06/24 16:55 Urine Urobilinogen Normal (Normal) 11/06/24 16:55 Ur Leukocyte Esterase Negative Ronda/uL (Negative) 11/06/24 16:55 Urine RBC <5 /HPF (None Seen) 10/31/24 23:40 Urine WBC <5 /HPF (<5) 10/31/24 23:40 Ur Squamous Epith Cells None seen /HPF (None Seen) 10/31/24 23:40 Unidentified Crystals Few /HPF (None Seen) 10/31/24 23:40 Urine Bacteria None seen /HPF (<20) 10/31/24 23:40 Urine Mucus Slight /HPF (None Seen) 10/31/24 23:40 Urine Culture Reflexed Not needed 10/31/24 23:40 Urine Total Protein Negative (Negative) 11/06/24 16:55 Weight: 185 lb Wound Present: No Closed Surgical Incision Present: Yes Negative Pressure Wound Therapy Present: No Physician Update: More alert today and no new loss of bowels. Workup for infection is negative. Max x 2 transfers, stand 5-10 seconds at parallel bars. More confused with occupational therapy. KUB showed retained stool. Will need SNF for discharge. Will cut back gabapentin. Summary: Patient's care plan and custodial goals have been reviewed and revised as necessary. Please see the Rehabilitation Signature page for all necessary signatures.
[2024-11-07] MEDS: GABAPENTIN 300 MG CAP PO SCH (20:39)
[2024-11-09] MEDS: DOCUSATE NA/SENNA CONC 1 TAB PO PRN (20:27)
[2024-11-10] MEDS: D10W 125 ML IV PRN (16:11)
[2024-11-10] MEDS: INSULIN GLARGINE 100 UNIT/ML SQ SCH (20:49)
--- NOTE | 2024-11-11 00:23 | PN ---
Date of Progress Note: 11/10/2024 Time Of Service: 1:20 p.m. Subjective: At the time of my evaluation, Ms. Lai was more alert than previously, interactive, a nd following instructions and commands. However, the nursing staff did note later on in the evening she was more disoriented and confused, and blood sugars were assessed and found to be critically low around 4 p.m. at 30. She did receive oral glucose replacement and 12 minutes later blood sugar was 7 1; 50 minutes later, blood sugar was 134; and 2 hours later, blood sugar 155. Objective: No fevers or chills. No nausea, vomiting. No myalgias, arthralgias. No rash. Reports pain is slightly less in the right hip compared to previously, but still reports although the affect does not match the report. She says maybe 6 or 7, smiling and talking, and not necessaril y reporting or holding onto the right hip surgical site. Physical Examination: Vital Signs: Blood pressure 157/67, pulse 63, respiratory rate 18, temperature 97.7, oxygen saturati on 92%. General: Ms. Lai again is lying in bed between therapy sessions. HEENT: She is normocephalic, atraumatic. Sclerae anicteric. Oropharynx moist. Neck: Supple. Chest: Clear. Extremities: She has good hemostasis at the right hip intertrochanteric fracture surgery site. Medications: Medications have been reviewed and are unchanged. Laboratory Studies: Again, blood sugars have been noted. Otherwise, no new laboratory studies. X-ray/imaging: No new x-rays or imaging. Progress Made With Physical, Occupational, And Speech Therapy: With physical therapy today, she did fnooii-au-bjn transfers with minimum assistance for trunk control. Bge-wo-wgrdn transfers from wheel chair to bed with minimum assistance. Multiple ujhof-fz-xlzky transfers with minimum assistance. Billy katz did ambulate in the parallel bars, but maximum assistance and was really not able actually to take a step on the left lower extremity due to pain reported to the therapist. With occupational therapy, minimum to contact guard assistance for sit to stand. Completed 2 sets x4 sit to stand transfers wi th minimum to contact guard assistance. Completed sink bath with antibacterial wipes with minimum as sistance between lower legs and feet. It is noted the patient will be discharged to skilled. She burt s significant cognitive impairment, which will put her at risk of poor decision-making and falls, whi ch is the reason she is in the unit after a fall and the fracture in the right hip. With speech ther apy, she is able to recall, however, 3 of 3 unrelated items after 30 seconds and 1 minute with minimu m assistance. She could do the divergent and convergent naming tasks with 80% accuracy and moderate assistance. She required moderate assistance for cause and effect relationship tasks. Assessment: Ms. Lai is a 79-year-old patient in the rehabilitation unit with a right intertrocha nteric femur fracture, status post repair. She has ncbv-py-hpkraeof pain, managed with tramadol, Tyl enol, and Vale. She has Eliquis for DVT prophylaxis, albuterol nebulizer for shortness of breath, L ipitor for dyslipidemia, Tessalon Perles for cough. She has [place] vitamin D for osteoporosis. She has Sinemet 25/100 for her Parkinson disease. Coreg for management of blood pressure. Semglee insul in for diabetes mellitus, which will be decreased as the patient did not eat a snack when the insulin was given and resulted in that low blood sugar. She has gabapentin 300 mg twice daily for neuropath ic pain, Namenda 5 mg daily for dementia, Paxil for depression, and Senokot for constipation. LB/MODL Voice ID: [id number] Report ID: [id number]
[2024-11-11] MEDS: INSULIN GLARGINE 100 UNIT/ML SQ SCH (21:14)
--- NOTE | 2024-11-12 00:17 | PN ---
Date of Progress Note: 11/11/2024 Time Of Service: 1:40 p.m. Subjective: Ms. Lai is much brighter today, mobilizing on a wheelchair, very interactive and rec alling my name appropriately with appropriate greeting, and very enthusiastic and excited today. Objective: No fevers, chills. No myalgias, arthralgias. No rash. No new complaints. Physical Examination: Vital Signs: Blood pressure 121/77, pulse 72, respiratory rate of 16, temperature 97.9, oxygen satur ation 96%. GENERAL: Ms. Lai is in a wheelchair mobilizing on the hallway. HEENT: She does appear normocephalic, atraumatic. Sclerae anicteric. Oropharynx pink, moist. Neck: Supple. Chest: Clear. Extremities: Her right intertrochanteric femur fracture site surgical repair has good hemostasis. Laboratory Studies: Today, blood sugars were low early in the morning down to 37. Her insulin has b een adjusted. She did have an improvement to 84 within 15 minutes to 20 minutes span, that increased to 252 four hours later and 131 another 5 hours later. X-ray/imaging: No new x-rays or imaging. Medications: Semglee insulin has been adjusted, decreased from 20 to 15 units of Semglee insulin at bedtime and from 15 to 12 units Semglee insulin in the morning. In addition, she does have the gluca kanwal 1 mg for hypoglycemia on board. She has tramadol for pain, Senokot for constipation, Paxil for d epression, Protonix for GE reflux, Namenda 5 mg daily for dementia, melatonin 3 at night for insomnia , Cozaar 25 mg daily for hypertension, Imodium for loose stools, guaifenesin for cough, gabapentin fo r neuropathic pain, Lasix for fluid management, ferrous sulfate for her anemia, Glucerna for malnutri tion, Plavix for stroke risk reduction. She has Sinemet 25/100 for Parkinson's symptoms, Lipitor for dyslipidemia, Eliquis for stroke risk reduction, albuterol nebulizer for shortness of breath, [place] for pain along with Tylenol. Progress Made With Physical, Occupational, And Speech Therapy: Today with physical therapy, she did mobilize wheelchair 150 feet and 100 feet with supervision. Bed mobility done with contact guard ass istance. Multiple kpv-jr-xmuox transfers done with minimum assistance. Lil-mz-mdkqa transfers done with minimum assistance. She also mobilized wheelchair another 100 feet with standby assistance and verbal cues. Supine to sit transfers done with standby assistance as well. With occupational therap y, supervision for bathing. She required supervision for upper body dressing, partial assistance for lower body dressing, contact guard for zaf-dx-fquqh transfers and shower transfers along with toilet transfers. With speech therapy, she was oriented to temporal concepts with 25% accuracy and spatial concepts with 75% actually accuracy. Organizational thinking skills used during a divergent naming task for 5 members of a concrete category with 50% accuracy. Assessment: Ms. Lai is a 79-year-old patient in the rehabilitation unit with right intertrochant carito fracture and she has had surgical repair. She has good hemostasis at the site. She is doing we ll in terms of recovery there. She does have uwlw-qb-jyowowee dementia with some sundowning and that has stabilized. She has stool incontinence, urinary incontinence. She has decreased mobility, decr eased physical functioning. Of course stroke risk. She has DVT risk and those are addressed. She h as dyslipidemia, cough, Parkinson disease, neuropathic pain, and diabetes mellitus insomni a and pain. Plan: She will continue with physical, occupational, and speech therapy 3-1/2 hours, 5 of 7 days. S he will continue with comorbid condition medications, which have been noted. Given the patient's nee d for 24 hours supervision, she is not a good candidate to be home independently and recommendation w ill be for her to have the 24 hours care and perhaps group home prior to being able to go home and becoming independent. MESHA/FARIHA Voice ID: [id number] Report ID: [id number]
[2024-11-12 05:24] LABS: Absolute Eosinophils 0.1 K/uL (0-0.5); Absolute Lymphocytes (CBC) 4.2 K/uL (0.7-4.9); Absolute Monocytes 0.5 K/uL (0.1-1.3); Absolute Neutrophil 5.1 K/uL (1.8-8.0); Basophils % 0.4 % (0-1.3); Eosinophils % 1.2 % (0-4.4); Hematocrit 24.9 % (36.0-45.0); Hemoglobin 8.2 g/dL (12.0-15.0); Lymphocytes % 42.4 % (15.3-44.8); MCH 29.6 pg (27.0-35.0); MCHC 32.9 g/dL (32.0-36.0); MPV 7.7 fL (7.6-11.3); Monocytes % 5.3 % (3.3-12.3); Neutrophils % 50.7 % (41.7-73.7); Nucleated Red Blood Cells % 0.1 % (0-0); Platelets 340 thou/uL (152-406); RBC Red Blood Cell Count 2.76 M/uL (3.86-4.86); Red Cell Distribution Width 16.2 % (12.1-15.2)
[2024-11-12 05:40] LABS: Albumin 2.4 g/dL (3.4-5.0); Anion Gap 6.1 mEq/L (5.0-15.0); Magnesium 2.2 mg/dL (1.6-2.4); Potassium 4.1 mEq/L (3.5-5.1); Prealbumin 13.3 mg/dL (20-40)
[2024-11-12] MEDS: INSULIN GLARGINE 100 UNIT/ML SQ SCH (09:35)
--- NOTE | 2024-11-13 00:43 | PN ---
Date of Progress Note: 11/12/2024 Time Of Service: 1:40 a.m. Subjective: Ms. Lai is doing very well. She is happy, laughing, smiling, seems to be back to he rself and is in bed and happy for her discharge in the morning. Objective: No fevers, chills, nausea, vomiting. She still has at times moderate pain in her right h ip intertrochanteric fractures site where she has surgery. Otherwise, in objective, again no fevers and chills. No other positives. Physical Examination: Vital Signs: Blood pressure 141/65, pulse 60, respiratory rate 18, temperature 98.8, oxygen saturati on 95% room air. General: Ms. Lai lying in bed. HEENT: She appears normocephalic, atraumatic. Sclerae anicteric. Oropharynx moist. Neck: Supple. Chest: Clear. Heart: Regular. Extremities: No issues in terms of lack of hemostasis. At the right hip surgical site, there is goo d hemostasis and no significant edema in the lower extremities. Neuro: No focal neurological deficits. Laboratory Studies: White blood cell count now today is normal at 10.0, hemoglobin is 8.2, platelets 340. Sodium 135, potassium 4.1, chloride 101, carbon dioxide 32, BUN 19, creatinine 1.16, glucose r anged from 140 to 250, calcium 8.1, magnesium 2.2, albumin 2.4, prealbumin 13.3. X-ray/imaging: No new x-rays or imaging. Medications: Medications have been reviewed. She is on Semglee insulin now with 12 units with break fast, 15 units at night that was decreased. It is helpful as the patient is doing better. She has I modium for diarrhea, Cozaar for blood pressure and heart rate control, melatonin for insomnia, Namend a for dementia, Protonix for GE reflux, tramadol for pain. She also has Eliquis for DVT prophylaxis, Lipitor for dyslipidemia, albuterol nebulizer for shortness of breath, Tessalon for cough, carbidopa levodopa for Parkinson disease, and Plavix for stroke risk reduction. 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 Multiple [id number] louis sfers with standby assistance. She ambulated in the parallel bars 8 feet twice with contact guard as sistance. Using a rolling walker, she did 5 feet with minimum assistance. Wheelchair mobilization 1 50 feet independently. With occupational therapy, she made improvements towards her goals, but jet [place] required assistance for transfers and ADLs. Standing balance and tolerance for standing and of c ourse for pain. With regard to speech, she was administered a BIM. She improved from a 12 to a 15 which is normal fu ll score. The SLUMS improved from 16 to 19. She will be discharged to skilled as noted. Assessment: Ms. Lai is a 79-year-old patient in the rehabilitation unit with a right intertrocha nteric femur fracture status post surgical repair. She has decreased mobility, decreased physical fu nctioning. She has dementia, dyslipidemia, Parkinson disease, hypertension, diabetes mellitus, const ipation, insomnia, GE reflux, and depression. Plan: 1.She will continue with physical, occupational, and speech therapy 3.5 hours, 5 of 7 days until she is discharged. 2.Continue with comorbid condition medications which have been noted. 3.She will be discharged to intermediate in the morning to continue the therapy. She will follow up with her orthopedic physician and with the primary care physician as scheduled. MESHA/FARIHA Voice ID: [id number] Report ID: [id number]
[2024-11-14 01:05] VITALS: BP 164/70; TEMP 98.4
[2024-11-14 01:12] VITALS: O2SAT 95
--- NOTE | 2024-12-08 07:47 | DS ---
Date of Discharge: 11/13/2024 Allergies: NO KNOWN DRUG ALLERGIES. Discharge Diagnoses: Right hip fracture, status post surgical repair, insulin-dependent diabetes tesha litus, dementia, diabetic peripheral neuropathy, Parkinson disease, insomnia, anemia. Discharge Medications: Lantus 25 units at bedtime, Plavix 75 mg daily, Eliquis 5 mg daily, Paxil 30 mg daily, Protonix 40 mg daily, and Lantus also 10 units at breakfast along with 25 units at bedtime, oxycodone 5 mg every six hours, Namenda 5 mg daily, Cozaar 25 mg daily, gabapentin 300 mg three time s daily, Coreg 6.25 mg twice daily, Lipitor 40 mg daily, tramadol 50 mg twice daily as needed, melato sue 3 mg at bedtime, Imodium 2 mg every four hours as needed, lidocaine patch two topically daily, La six 40 mg daily, ferrous sulfate 325 mg daily. X-ray/imaging: Hip x-ray done on 11/06/2024, shows a proximal right femur nail in place. No hardwar e complications. No evidence of avascular necrosis. Chest x-ray on 11/06/2024, and compared to one on 11/01/2024, showed mild CHF pattern and pacemaker and lead device in place. Synopsis Of Events That Led To Admission: Ms. Lai is a 79-year-old patient with multiple medical problems as noted who was ambulating at home in the dark when she fell. She impacted the right side , had severe pain, could not bear weight. Evaluation identified right hip fracture. Prior to the fa ll, she was diagnosed with pneumonia and had been admitted and was requiring up to 6 L of oxygen and antibiotics. She was transferred to [facility] for higher level of car e where she had surgical intervention. She had a cephalomedullary meredith nailing of the right femur on 10/25, and was put at a weightbearing as tolerated status of the right lower extremity. Postoperativ ubaldo, she was managed by the Hospitalist Service. She had Cardiology and Pulmonology following. She receives Lasix and was eventually weaned off oxygen. She was treated with cefepime, vancomycin, and metronidazole for pneumonia. Her blood pressure and diabetes also addressed. In addition, her Parki nson disease was addressed with carbidopa and levodopa. Dyslipidemia addressed with atorvastatin. S he had Paxil for depression and trazodone for insomnia. Postoperatively, she had significant anemia requiring a unit of packed red blood cells on October 30. As a result of her postoperative conditio n and need for comorbid condition and medication management, she was found to be a good candidate for inpatient rehabilitation, and was therefore admitted to the unit for physical and occupational thera py. During hospitalization, she did well. She had as noted hip x-ray, chest x-rays done twice, show ing no unexpected findings. Her white blood cell count was initially elevated to a max of 13.63 on t and normalized on discharge at 10.0, platelets remained normal at 340, her hemoglobin was low but stable on admission 8.2, hemoglobin is on the and on discharge on 8.2 as well. Her bloo d glucose did remain slightly elevated throughout, 140 up to 255. Her sodium was slightly low at 135 , potassium 4.1, chloride 101, carbon dioxide 32. Prealbumin 13.3, albumin 2.4, magnesium 2.2, calci um 8.1. The progress made with her physical, occupational, and speech therapy. At the time of discharge, for gait she is covered 5 feet, poor tolerance, moderate assistance. Wheelchair mobilization was better at 150 feet with standby assistance. She was independent with bed mobility, standby assistance to c ontact guard for transfers, and was very anxious and worried about falling that limits her gait to ab out 5 feet. Wheelchair again was independent. She was discharged to [facility] to continue the rapy as she is unsafe to return home currently. With occupational therapy, independent with eating, grooming independent, showering supervision, upper body dressing setup assistance, lower body dressin g minimum assistance, toileting minimum assistance. Again discharged to [facility] to continue therapy. Regarding her cognition, her attention was at a moderate assistance level. Memory, moderat e assistance for short-term, minimum assistance for long-term memory, moderate assistance for her pra gmatics, comprehension required direct supervision. For verbal expression, she was independent for r epetition, naming minimum assistance required, minimum assistance for conversation. Intelligibility was 100%. She scored 12 on the BIMS and 16 on the SLUMS score. Followup orthopedic surgeons and her primary care jillian jose as scheduled. MESHA/FARIHA Voice ID: [id number] Report ID: [id number]
== END 2024-11-13 11:55 | DRG 560 ==
LOC: 5TH 16:25
PROVIDERS: ADMIT Psychiatry & Neurology Neurology with Special Qualifications in Child Neurology; ATTEND Psychiatry & Neurology Neurology with Special Qualifications in Child Neurology
DX: S72.141D Displaced intertrochanteric fracture of right femur, subsequent encounter for closed fracture with routine healing (principal); C91.10 Chronic lymphocytic leukemia of B-cell type not having achieved remission; G47.00 Insomnia, unspecified; I10 Essential (primary) hypertension; G20.A1 Parkinson's disease without dyskinesia, without mention of fluctuations; E78.5 Hyperlipidemia, unspecified; I50.9 Heart failure, unspecified; E03.9 Hypothyroidism, unspecified; K59.00 Constipation, unspecified; F32.A Depression, unspecified; G30.9 Alzheimer's disease, unspecified; F02.80 Dementia in other diseases classified elsewhere, unspecified severity, without behavioral disturbance, psychotic disturbance, mood disturbance, and anxiety
CPT/HCPCS: 36415; 71045; 80048; 81001; 81003; 82040; 82947; 83735; 84134; 85025; 87086; 87088; 92523; 94010; 97010; 97110; 97116; 97129; 97161; 97165; 97530; 97542; J1644; J2003